=== PATIENT | female | born 1960 | race Caucasian/White ===

== ENCOUNTER 2020-10-19 22:06 | Inpatient (IN) | payer MEDICAID, SELFPAY ==
[~2020-10-19] VITALS: Ht 162.6 cm; Wt 66.7 kg
[2020-10-19 22:09] VITALS: BP 111/77
--- NOTE | 2020-10-19 22:09 | NUR ---
PT ALEXANDRU ALS. TAKEN TO BED 9
--- NOTE | 2020-10-19 22:39 | NUR ---
EMT at bedside for EKG
--- NOTE | 2020-10-19 22:40 | NUR ---
PATIENT BIBA FROM HOME FOR SOB X 10 DAYS. PER PATOENT HAS BEEN FEELING "SICK WITH COUGH FOR 19 DAYS." PATIENT STATES TESTED POSITIVE FOR COVID X 10 DAYS AGO. PATIENT PRESENTS WITH LABORED BREATHING, PATIENT CURRENTLY ON NON-REBREATHER @ 15L/MIN AND O2SAT @ 96%. PER EMS PATIENT WAS AT 75% PN RA. MEDHX: LUBNAIES CELINA
--- NOTE | 2020-10-19 22:41 | NUR ---
Dr. Aguila examining patient.
[2020-10-19 22:52] LABS: BASOPHILS # (AUTO) 0.1 K/uL (0.00-0.22); BASOPHILS % (AUTO) 1.1 % (0.0-2.0); EOSINOPHILS # (AUTO) 0.3 K/uL (0-0.4); EOSINOPHILS % (AUTO) 2.1 % (0.0-4.0); HEMATOCRIT 38.8 % (36-48); HEMOGLOBIN 13.5 g/dL (12.0-16.0); LYMPHOCYTES # (AUTO) 1.3 K/uL (2.5-16.5); LYMPHOCYTES % (AUTO) 10.4 % (20.5-51.1); MEAN CORPUSCULAR HEMOGLOBIN 31 pg (27-31); MEAN CORPUSCULAR HGB CONC 35 g/dL (33-37); MEAN CORPUSCULAR VOLUME 89.3 fL (80-94); MONOCYTES # (AUTO) 0.2 K/uL (0.8-1.0); MONOCYTES % (AUTO) 1.7 % (1.7-9.3); NEUTROPHILS # (AUTO) 10.2 K/uL (1.8-7.7); NEUTROPHILS % (AUTO) 84.7 % (42.2-75.2); PLATELET COUNT (AUTO) 355 K/uL (140-450); RED BLOOD CELL COUNT(AUTO) 4.34 MIL/uL (4.20-5.40); RED CELL DISTRIBUTION WIDTH 13.8 % (11.6-13.7); WHITE BLOOD COUNT (AUTO) 12.1 K/uL (4.8-10.8)
[2020-10-19 22:55] LABS: APPEARANCE,URINE CLEAR (CLEAR); BILIRUBIN,URINE NEGATIVE (NEGATIVE); BLOOD, URINE NEGATIVE (NEGATIVE); COLOR,URINE YELLOW (YELLOW); LEUKOCYTE ESTERASE ,URINE NEGATIVE (NEGATIVE); NITRITE, URINE NEGATIVE (NEGATIVE); UGLUCOSE NEGATIVE (NEGATIVE)
--- NOTE | 2020-10-19 22:55 | NUR ---
RT AT BEDSIDE. ABG COLLECTED.
--- NOTE | 2020-10-19 23:02 | NUR ---
XRAY AT BEDSIDE.
--- NOTE | 2020-10-19 23:03 | NUR ---
Ed rice in [facility] - 10/19/20 at 2303 by FRANCISCO X-Ray at bedside.
[2020-10-19 23:14] LABS: PROTHROMBIN TIME 11.6 secs (10.8-13.4)
[2020-10-19 23:18] LABS: ALBUMIN 2.2 g/dL (3.4-5.0); ANION GAP 11.2 (8-16); CARBON DIOXIDE 28.1 mmol/L (21-32); CREATININE 0.7 mg/dL (0.6-1.3); LACTATE DEHYDROGENASE 965 U/L (81-234); POTASSIUM 3.3 mmol/L (3.5-5.1); TOTAL BILIRUBIN 1.4 mg/dL (0.0-1.0)
[2020-10-19 23:25] LABS: D-DIMER > 5000 ng/ml (0-400)
[2020-10-19 23:30] LABS: FIBRINOGEN 496 mg/dL (200-400)
[2020-10-19] MEDS ORDERED: AZITHROMYCIN 500 MG in DEXTROSE 5% 250 ML IV ONE (23:30)
[2020-10-19] MEDS ORDERED: cefTRIAXone 1,000 MG VIAL ONE (23:30)
[2020-10-19] MEDS ORDERED: DEXAMETHASONE 10 MG/ML VIAL IVP ONE (23:30)
[2020-10-19] MEDS ORDERED: AZITHROMYCIN 500 MG INJ VIAL IV ONE (23:31)
--- NOTE | 2020-10-19 23:31 | NUR ---
BERTHA Carmichael at bedside for medical evaluation.
[2020-10-19] MEDS ORDERED: ACETAMIN/CODEINE 120/12MG-5ML 5 ML UDC PO ONE (23:35)
--- NOTE | 2020-10-19 23:52 | NUR ---
RT AT BEDSIDE.
--- NOTE | 2020-10-20 | NUR ---
PLACED PT ON HFNC @30LPM AND 100% FIO2, PT IS TOLERATING WELL, SATURATION AT 96%. WILL CONTINUE TO MONITOR
--- NOTE | 2020-10-20 02:55 | NUR ---
Patient will be admitted to care of . Admited to TELE. Will go to room 112A. Belongings list completed. Report to DECLAN VALLES.
--- NOTE | 2020-10-20 03:40 | NUR ---
PATIENT WAS TRANSFERRED TO ROOM 112A VIA GURNEY. PT IS AAOX4 TOGOLESE SPEAKING ONLY ABLE TO MAKE NEEDS KNOWN. RESPIRATIONS ARE EQUAL AND UNLABORED ON 30L VIA HFNC SAT WELL 95%. PT ON BEDREST D/T INCREASED SOB WITH ACTIVITY. PATIENT IS CONTINENT USES BED COOK. SKIN IS INTACT. IV ON RW 20G SL. PT RAPID COVID -. PER PT SHE TESTED POSITIVE LAST SUNDAY AND HAS THEN HAD INCREASED SOB REASON SHE CAME TO HOSPITAL. MRSA SWAB OBTAINED AND SENT TO LAB. PT DENIES ANY PMH. NKA. ON DROPLET ISOLATION. POC DISCUSSED WITH PT. PT VERBALIZED UNDERSTANDING. ORIENTED PT TO ROOM, STAFF, AND CALL LIGHT. ALL SAFETY MEASURES ARE IN PLACE. WILL CONTINUE TO MONITOR.
[2020-10-20 04:00] VITALS: BP 141/68
--- NOTE | 2020-10-20 04:00 | NUR ---
ASSISTED PATIENT WITH BEDPAN. PT TOLERATED WELL. ALL NEEDS MET. CALL LIGHT IS WITHIN REACH.
[2020-10-20] MEDS ORDERED: MORPHINE SULFATE 2 MG/ML SYR IVP PRN ×2 (04:15→07:05)
[2020-10-20] MEDS: NACL 0.9% 1,000 ML IV SCH (04:50)
--- NOTE | 2020-10-20 06:00 | NUR ---
ROUNDS MADE. PT IS SLEEPING COMFORTABLY IN BED WITH EYES CLOSED. CHEST RISE AND FALL NOTED. CALL LIGHT IS WITHIN REACH.
[2020-10-20] MEDS ORDERED: DOCUSATE SODIUM 100 MG GELCAP PO PRN (07:05)
[2020-10-20] MEDS ORDERED: ALBUTEROL HFA MDI 90 MCG/ACTUATION 8 GM INH PRN (07:05)
[2020-10-20] MEDS ORDERED: HYDROcodone/APAP 5/325 MG 1 TAB TAB PO PRN (07:05)
[2020-10-20] MEDS ORDERED: LORazepam 2 MG/ML VIAL IM/IVP PRN (07:05)
[2020-10-20] MEDS ORDERED: ONDANSETRON 4 MG/2 ML VIAL IVP PRN (07:05)
[2020-10-20] MEDS ORDERED: ZOLPIDEM 5 MG TAB PO PRN (07:05)
[2020-10-20] MEDS ORDERED: ACETAMINOPHEN 325 MG TAB PO PRN (07:05)
--- NOTE | 2020-10-20 07:20 | NUR ---
GAVE BEDSIDE REPORT TO DAY RN. PT ENDORSED IN STABLE CONDITION.
[2020-10-20 07:26] LABS: BASOPHILS % (AUTO) 0.2 % (0.0-2.0); EOSINOPHILS % (AUTO) 0.1 % (0.0-4.0); HEMATOCRIT 39.5 % (36-48); HEMOGLOBIN 13.4 g/dL (12.0-16.0); LYMPHOCYTES # (AUTO) 0.6 K/uL (2.5-16.5); MEAN CORPUSCULAR HEMOGLOBIN 31 pg (27-31); MEAN CORPUSCULAR HGB CONC 34 g/dL (33-37); MEAN CORPUSCULAR VOLUME 91.1 fL (80-94); MONOCYTES # (AUTO) 0.2 K/uL (0.8-1.0); MONOCYTES % (AUTO) 1.9 % (1.7-9.3); NEUTROPHILS # (AUTO) 11.1 K/uL (1.8-7.7); NEUTROPHILS % (AUTO) 92.8 % (42.2-75.2); PLATELET COUNT (AUTO) 325 K/uL (140-450); RED BLOOD CELL COUNT(AUTO) 4.34 MIL/uL (4.20-5.40); RED CELL DISTRIBUTION WIDTH 14.2 % (11.6-13.7)
[2020-10-20 08:00] VITALS: BP 101/61
[2020-10-20 08:10] LABS: PROTHROMBIN TIME 11.7 secs (10.8-13.4)
[2020-10-20 08:32] LABS: CHOL/HDL RATIO 8.2 (1-4.5); FREE T4 (FREE THYROXINE) 1.28 ng/dL (0.76-1.46); MAGNESIUM 3.2 mg/dL (1.8-2.4); PHOSPHORUS 3.5 mg/dL (2.5-4.9); THYROID STIMULATING HORMONE 0.7 uIU/mL (0.34-3.74)
[2020-10-20 08:46] LABS: ALBUMIN 2.1 g/dL (3.4-5.0); CREATININE 0.7 mg/dL (0.6-1.3)
--- NOTE | 2020-10-20 09:19 | NUR ---
PATIENT HAS BEEN SCREENED AND CATEGORIZED MODERATE NUTRITION RISK. PATIENT WILL BE SEEN WITHIN 3-5 DAYS OF ADMISSION. 10/22/20 10/24/[address]
[2020-10-20] MEDS: ENOXAPARIN 40 MG/0.4 ML SYR SUBQ SCH (09:56)
[2020-10-20] MEDS: VITAMIN D 400 IU TAB PO SCH (09:56)
[2020-10-20] MEDS: ZINC SULF 220 MG CAP PO SCH ×2 (09:57→21:00)
[2020-10-20] MEDS: ASCORBIC ACID 500 MG TAB PO SCH (09:57)
[2020-10-20] MEDS: AZITHROMYCIN 250 MG TAB PO SCH (09:59)
--- NOTE | 2020-10-20 10:39 | NUR ---
SOCIAL WORK NOTE: SW WAS UNABLE TO MEET PATIENT AT BEDSIDE. SW CONTACTED PHONE NUMBER ON FACE SHEET AND LEFT VM. SW CONTACTED RN BUT NO ADDITIONAL CONTACTS WERE AVAILABLE. SW WILL FOLLOW UP TO COMPLETE ASSESSMENT. Addendum: 10/26/20 at 1148 by Herman Menendez SS SOCIAL WORK NOTE: Patient's Orientation Unable To Assess Information Provided By CHELSY TYSON - DAUGHTER Comments SW WAS UNABLE TO MEET PATIENT AT BEDSIDE. SW COMPLETED ASSESSMENT WITH PATIENT'S DAUGHTER. Clinical Applications Manager, Realtionship and Phone Number CHELSY TYSON DAUGHTER [phone] [facility] [place] Power of Bundle Tier No Does Patient Have a POLST No Identifying Problems No Social Work Triggers Is A Social Work Consult Needed No Mandate Report Filed No Explanation Of Identifying Problems PATIENT IS A 60-YEAR-OLD FEMALE ADMITETD FOR BILATERAL PNEUMONIA AND COVID. PATIENT HAS NO REPORTED PMHX. PATIENT'S DAUGHTER REPORTED THAT NO HX OF SUBSTANCE ABUSE OR MENTAL HEALTH. Admitted From Home Pre-Admission Level Of Functioning Status Independent/Ambulatory Prior Resources/Services Used In Last 12 Months No Prior Resources Used Prior DME No Prior DME Used Dialysis Comments N/A Living Situation Lives With Family House Patient Had Caregiver No Home Support No Caregiver Issues Financial Issues No Known Financial Issue Referral To The Financial Counselor Needed No Factors/Needs No D/C Needs Identified Pt/Rep Participated In Discharge Plan Yes Patient/Family Agress With Discharge Plan Yes Discharge Plan Comments TENTATIVE DISCHARGE PLAN IS FOR PATIENT TO RETURN HOME. DC Plan Status Initiated
[2020-10-20 12:00] VITALS: BP 103/64
--- NOTE | 2020-10-20 15:30 | NUR ---
DC PLANNIN YRS OLD FEMALE PATIENT WAS ADMITTED FROM HOME WITH A DX OF BILATERAL PNEUMONIA COVID POSITIVE. PT WAS TESTED POSITIVE COVID 5 DAYS AGO. RAPID COVID TEST IS NEGATIVE, PCR IS PENDING. ON HIGH FLOW 30L/NC SATING 93%. STARTED COVID TREATMENT, ROCEPHIN AND AZITHROMYCIN IV ABX. CONSULTED WITH PULMO AND ID. DC PLAN TO TO GO HOME AFTER WEAN OFF O2. CM TO FOLLOW Addendum: 10/25/20 at 1511 by Trish Romo RN DC PLANNING: PT IS ON HIGH FLOW 30L/NC SATING 93% , CONTINUE COVID PROTOCOL. ID AND PULMO FOLLOWING DC PLAN TO WEAN OF O2. CM TO FOLLOW Addendum: 10/29/20 at 1439 by Trish Romo RN DC PLANNING: PT IS STILL ON 15L OXIMIZER SATING 93% FIO2 70% . ID AND PULMO FOLLOWING. CM TO FOLLOW Addendum: 11/05/20 at 1543 by Trish Romo RN DC PLANNING: PT IS ON O2 2L/NC SATING 95% DC PLAN TO WEAN O2 TO RA AND DC HOME WHEN STABLE CM TO FOLLOW Addendum: 11/08/20 at 1053 by Ivanna Katz CM DC DIRECTOR OF RETENTION: FOLLOWED UP WITH [facility] THIS MORNING. AT THIS TIME THEY ARE ONLY ACCEPTING HOME 02 FOR [facility] PATIENTS. Addendum: 11/08/20 at 1212 by Trish Romo RN DC PLANNING: PT IS ON 1.5L/NC SATING 93% ,UNABLE TO GET [facility] PAY FOR HOME O2. DC PLAN TO WEAN OF O2. CM TO FOLLOW Addendum: 11/11/20 at 1424 by Trish Romo RN DC PLANNING: RECEIVED A CALL FROM [employer] RESP CARE SPOKE WITH TISHA CRUZ PT IS QUALIFIED FOR HOME O2 WILL DELIVER WITH IN 3-4 HRS. NOTIFIED HALIMA VALLES AND CLAUDY CHARGE NURSE. CM TO FOLLOW
[2020-10-20 16:00] VITALS: BP 123/94
[2020-10-20 20:00] VITALS: BP 113/71
--- NOTE | 2020-10-20 20:12 | NUR ---
RECEIVED REPORT FROM BHAVESH RN, PT A&O X4, VERBAL, NEEDS MOD. ASSIST FOR FALL RISK, ON COVID ISOLATION, HI FLOW @30L, WITH SOB, NO DISTRESS, CARE ASSUMED.
[2020-10-21] VITALS: BP 149/81
[2020-10-21] MEDS: NACL 0.9% 1,000 ML IV SCH (00:05)
--- NOTE | 2020-10-21 02:29 | NUR ---
PT SEEN AND ASSESSED. PT ON HFNC 30L AND 100% FiO2 WITH SPO2 91%. PT IN NO RESPIRATORY DISTRESS AT THIS TIME. WILL CONTINUE TO MONITOR PT.
[2020-10-21 04:00] VITALS: BP 125/73
--- NOTE | 2020-10-21 07:24 | NUR ---
GAVE REPORT TO TOYA/HAI
[2020-10-21 09:20] LABS: BASOPHILS # (AUTO) 0.1 K/uL (0.00-0.22); BASOPHILS % (AUTO) 0.7 % (0.0-2.0); HEMOGLOBIN 12.4 g/dL (12.0-16.0); LYMPHOCYTES # (AUTO) 1.1 K/uL (2.5-16.5); LYMPHOCYTES % (AUTO) 7.1 % (20.5-51.1); MEAN CORPUSCULAR HEMOGLOBIN 31 pg (27-31); MEAN CORPUSCULAR HGB CONC 33 g/dL (33-37); MEAN CORPUSCULAR VOLUME 92.3 fL (80-94); MONOCYTES # (AUTO) 0.3 K/uL (0.8-1.0); MONOCYTES % (AUTO) 1.9 % (1.7-9.3); NEUTROPHILS # (AUTO) 13.6 K/uL (1.8-7.7); NEUTROPHILS % (AUTO) 90.3 % (42.2-75.2); PLATELET COUNT (AUTO) 325 K/uL (140-450); RED BLOOD CELL COUNT(AUTO) 4.01 MIL/uL (4.20-5.40); WHITE BLOOD COUNT (AUTO) 15.1 K/uL (4.8-10.8)
[2020-10-21 09:45] VITALS: BP 113/65
[2020-10-21 10:21] LABS: ANION GAP 11.8 (8-16); CREATININE 0.6 mg/dL (0.6-1.3); MAGNESIUM 2.7 mg/dL (1.8-2.4); PHOSPHORUS 2.7 mg/dL (2.5-4.9); POTASSIUM 3.8 mmol/L (3.5-5.1); TOTAL BILIRUBIN 0.4 mg/dL (0.0-1.0)
[2020-10-21] MEDS: ASCORBIC ACID 500 MG TAB PO SCH (10:29)
[2020-10-21] MEDS: AZITHROMYCIN 250 MG TAB PO SCH (10:30)
[2020-10-21] MEDS: ENOXAPARIN 40 MG/0.4 ML SYR SUBQ SCH (10:39)
[2020-10-21] MEDS: ZINC SULF 220 MG CAP PO SCH ×2 (10:41→21:29)
[2020-10-21] MEDS: VITAMIN D 400 IU TAB PO SCH (10:43)
[2020-10-21 12:00] VITALS: BP 115/70
[2020-10-21 16:00] VITALS: BP 116/60
--- NOTE | 2020-10-21 18:35 | NUR ---
Patient alert, oriented and able to verbalize needs. Patient currently on high flow at 40L/0% Fi02 tolerating procedure. Changed to non rebreather at 15 L and patient was able to tolerate and stats stayed at 93 %. Encouraged to prone, cough and deep breath. Safety co measures in place and has no further needs.
[2020-10-21 20:00] VITALS: BP 100/53
--- NOTE | 2020-10-21 22:21 | NUR ---
Patient received in stable condition A&Ox4 showing 0 s/s of distress at this time. Patient is able to make all needs known, currently the patient is on 15L via a NRB and O2 level is stating at 92 and is tolerating well. Patient is being monitored for Covid r/t s/s. Patient is currently awaiting to speak to MD regarding education and obtain signed consent for convalescent palasma. Will continue to monitor and will follow up with plasma infusion.
[2020-10-22] VITALS: BP 149/65
--- NOTE | 2020-10-22 02:24 | NUR ---
LATE ENTRY: COVID + RESULT RECEIVED. HARD COPY REQUESTED AND SENT TO INFECTION CONTROL.
[2020-10-22] MEDS: NACL 0.9% 1,000 ML IV SCH ×2 (02:33→16:55)
[2020-10-22 04:00] VITALS: BP 136/79
[2020-10-22 06:42] LABS: BASOPHILS # (AUTO) 0.1 K/uL (0.00-0.22); BASOPHILS % (AUTO) 0.5 % (0.0-2.0); EOSINOPHILS % (AUTO) 0.2 % (0.0-4.0); HEMATOCRIT 37.1 % (36-48); HEMOGLOBIN 12.5 g/dL (12.0-16.0); LYMPHOCYTES # (AUTO) 1.1 K/uL (2.5-16.5); LYMPHOCYTES % (AUTO) 10.2 % (20.5-51.1); MEAN CORPUSCULAR HEMOGLOBIN 31 pg (27-31); MEAN CORPUSCULAR HGB CONC 34 g/dL (33-37); MEAN CORPUSCULAR VOLUME 91.6 fL (80-94); MONOCYTES # (AUTO) 0.2 K/uL (0.8-1.0); MONOCYTES % (AUTO) 1.4 % (1.7-9.3); NEUTROPHILS # (AUTO) 9.8 K/uL (1.8-7.7); NEUTROPHILS % (AUTO) 87.7 % (42.2-75.2); PLATELET COUNT (AUTO) 328 K/uL (140-450); RED BLOOD CELL COUNT(AUTO) 4.05 MIL/uL (4.20-5.40); RED CELL DISTRIBUTION WIDTH 14.2 % (11.6-13.7); WHITE BLOOD COUNT (AUTO) 11.2 K/uL (4.8-10.8)
--- NOTE | 2020-10-22 06:57 | NUR ---
Continuity of care is endorsed to AM shift RN. Patient is stable with 0 s/s of distress noted at this time on 15L NRB and stating at 93. All needs have been met.
[2020-10-22 07:57] LABS: ANION GAP 13.3 (8-16); CARBON DIOXIDE 26.4 mmol/L (21-32); CREATININE 0.6 mg/dL (0.6-1.3); POTASSIUM 4.7 mmol/L (3.5-5.1)
[2020-10-22 08:50] VITALS: BP 161/72
--- NOTE | 2020-10-22 08:55 | NUR ---
Patient awake and alert. Breathing rapidly on non rebreather. Changed patient to High flow as was not tolerating. Patient febrile and has malaise. Given Acetaminophen 650 Mg and observing patient. Called Vicente and requested for Physician to to explain and sign consent for Plasma Administration and Physician to sign it during rounds.
[2020-10-22] MEDS: ZINC SULF 220 MG CAP PO SCH ×2 (10:07→21:13)
[2020-10-22] MEDS: VITAMIN D 400 IU TAB PO SCH (10:08)
[2020-10-22] MEDS: ASCORBIC ACID 500 MG TAB PO SCH (10:08)
[2020-10-22] MEDS: ENOXAPARIN 40 MG/0.4 ML SYR SUBQ SCH (10:09)
[2020-10-22] MEDS: AZITHROMYCIN 250 MG TAB PO SCH (10:10)
[2020-10-22 12:00] VITALS: BP 120/73
[2020-10-22 16:50] VITALS: BP 127/74
--- NOTE | 2020-10-22 19:15 | NUR ---
RECEIVED REPORT FROM DAY SHIFT NURSE. PT IN BED RESTING, AOX4, BEDREST, ABLE TO MAKE NEEDS KNOWN. PT ON HIFLOW 40LPM FIO2 100%. PT NOT IN DISTRESS. CURRENT O2 SAT 99%. ABDOMEN IS SOFT AND NON-TENDER, ACTIVE BOWEL SOUNDS NOTED. SKIN IS WARM, DRY, AND INTACT. PT WITH IV ACCESS ON LEFT HAND G20 PATENT AND INTACT, IVF INFUSING WELL. PT DENIES ANY PAIN OR DISCOMFORT. NO REQUESTS MADE. SAFETY MEASURES IN PLACE. CALL LIGHT WITHIN REACH. WILL CONTINUE TO MONITOR.
[2020-10-22 20:00] VITALS: BP 126/68
--- NOTE | 2020-10-22 21:13 | NUR ---
VS STABLE. SCHEDULED MEDS GIVEN. HI FLOW IN PLACE. PT NOT IN DISTRESS. BLANKET PROVIDED NEEDED. PT KEPT COMFORTABLE. CALL LIGHT WITHIN REACH. WILL CONTINUE TO MONITOR.
--- NOTE | 2020-10-22 21:45 | NUR ---
CONVALESCENT PLASMA TRANSFUSION STARTED. VS STABLE. 2 NURSE VERIFICATION DONE PRIOR. WILL CONTINUE TO MONITOR.
--- NOTE | 2020-10-22 23:05 | NUR ---
CONVALESCENT PLASMA TRANSFUSION DONE. NO REACTIONS NOTED. VS STABLE. PT DENIES ANY PAIN OR DISCOMFORT. NO S/SX OF DISTRESS NOTED. WILL CONTINUE TO MONITOR.
[2020-10-23] VITALS: BP 155/55
--- NOTE | 2020-10-23 00:24 | NUR ---
VS STABLE. PT IN BED RESTING WITH HOB ELEVATED. HIFLOW IN PLACE. PT NOT IN DISTRESS. DENIES ANY PAIN OR DISCOMFORT. NO REQUESTS MADE. CALL LIGHT WITHIN REACH. WILL CONTINUE TO MONITOR.
--- NOTE | 2020-10-23 02:18 | NUR ---
PT ASLEEP. HI FLOW IN PLACE. VISIBLE CHEST RISE AND FALL NOTED. NO S/SX OF DISTRESS NOTED. PT KEPT COMFORTABLE. CALL LIGHT WITHIN REACH. WILL CONTINUE TO MONITOR.
[2020-10-23 04:00] VITALS: BP 146/65
--- NOTE | 2020-10-23 04:18 | NUR ---
VS STABLE. PT RESTING IN BED. O2 IN PLACE. PT DENIES ANY SHORTNESS OF BREATH. PT KEPT COMFORTABLE. NO REQUESTS MADE. WILL CONTINUE TO MONITOR.
--- NOTE | 2020-10-23 07:41 | NUR ---
ENDORSED TO AM SHIFT NURSE FOR CONTINUITY OF CARE
--- NOTE | 2020-10-23 07:50 | NUR ---
RECEIVED REPORT FROM STICK FEEDER NURSE. PT AOX4, BEDREST, ABLE TO MAKE NEEDS KNOWN. PT ON HIFLOW 40 LPM FIO2 100% CURRENT O2 SAT 99%. SKIN IS WARM, DRY, AND INTACT. PT WITH IV ACCESS ON LEFT HAND G20 PATENT AND INTACT, IVF INFUSING WELL. PT DENIES ANY PAIN OR DISCOMFORT. NO REQUESTS MADE. SAFETY MEASURES IN PLACE. CALL LIGHT WITHIN REACH. WILL CONTINUE TO MONITOR.
[2020-10-23 08:00] VITALS: BP 121/79
[2020-10-23 08:30] LABS: BASOPHILS % (AUTO) 0.3 % (0.0-2.0); EOSINOPHILS # (AUTO) 0.1 K/uL (0-0.4); EOSINOPHILS % (AUTO) 0.4 % (0.0-4.0); HEMATOCRIT 35.6 % (36-48); HEMOGLOBIN 12.1 g/dL (12.0-16.0); LYMPHOCYTES # (AUTO) 1.5 K/uL (2.5-16.5); LYMPHOCYTES % (AUTO) 11.9 % (20.5-51.1); MEAN CORPUSCULAR HEMOGLOBIN 31 pg (27-31); MEAN CORPUSCULAR HGB CONC 34 g/dL (33-37); MEAN CORPUSCULAR VOLUME 91.3 fL (80-94); MONOCYTES # (AUTO) 0.3 K/uL (0.8-1.0); MONOCYTES % (AUTO) 2.3 % (1.7-9.3); NEUTROPHILS # (AUTO) 10.5 K/uL (1.8-7.7); NEUTROPHILS % (AUTO) 85.1 % (42.2-75.2); PLATELET COUNT (AUTO) 319 K/uL (140-450); WHITE BLOOD COUNT (AUTO) 12.3 K/uL (4.8-10.8)
[2020-10-23 09:23] LABS: ANION GAP 14.6 (8-16); CARBON DIOXIDE 24.5 mmol/L (21-32); CREATININE 0.6 mg/dL (0.6-1.3); POTASSIUM 4.1 mmol/L (3.5-5.1)
--- NOTE | 2020-10-23 10:15 | NUR ---
RT TITRATED FIO2 DOWN TO 30 L. PT IS STABLE. NO DISTRESS NOTED. WILL CONTINUE TO MONITOR.
[2020-10-23] MEDS: AZITHROMYCIN 250 MG TAB PO SCH (10:16)
[2020-10-23] MEDS: VITAMIN D 400 IU TAB PO SCH (10:16)
[2020-10-23] MEDS: ZINC SULF 220 MG CAP PO SCH ×2 (10:16→21:28)
[2020-10-23] MEDS: ASCORBIC ACID 500 MG TAB PO SCH (10:17)
[2020-10-23] MEDS: ENOXAPARIN 40 MG/0.4 ML SYR SUBQ SCH (10:17)
--- NOTE | 2020-10-23 10:19 | NUR ---
(10/23/20) RD INITIAL ASSESSMENT COMPLETED PLEASE REFER TO NUTRITION ASSESSMENT UNDER CARE ACTIVITY FOR ESTIMATED NUTRITIONAL NEEDS. RD RECOMMENDATIONS: 1. CONTINUE CARDIAC DIET 2. CONTINUE HEALTH SHAKE 1 CARTON WITH MEALS TID 3. RD WILL F/U 3-5 DAYS; MODERATE RISK BLANCA ALVES MS, RDN
--- NOTE | 2020-10-23 10:20 | NUR ---
ALL SCHEDULED MEDS GIVEN. PT IS STABLE. NO DISTRESS NOTED. WILL CONTINUE TO MONITOR.
[2020-10-23] MEDS: NACL 0.9% 1,000 ML IV SCH (11:27)
[2020-10-23 12:00] VITALS: BP 119/65
--- NOTE | 2020-10-23 12:30 | NUR ---
CHECKED ON PATIENT. NO SIGNS OF ACUTE DISTRESS NOTED. WILL CONTINUE TO MONITOR.
--- NOTE | 2020-10-23 14:15 | NUR ---
CHECKED ON PATIENT. NO SIGNS OF ACUTE DISTRESS NOTED. WILL CONTINUE TO MONITOR.
[2020-10-23 16:00] VITALS: BP 109/54
--- NOTE | 2020-10-23 16:30 | NUR ---
CHECKED ON PATIENT. NO SIGNS OF ACUTE DISTRESS NOTED. WILL CONTINUE TO MONITOR.
--- NOTE | 2020-10-23 19:30 | NUR ---
ENDORSED TO CENTER AISLE CASHIER NURSE FOR CONTINUITY OF CARE. PT IS STABLE.
[2020-10-23 20:00] VITALS: BP 107/74
[2020-10-24] VITALS: BP 119/77
[2020-10-24 04:00] VITALS: BP 135/75
[2020-10-24] MEDS: NACL 0.9% 1,000 ML IV SCH (06:32)
[2020-10-24 08:00] VITALS: BP 136/82
[2020-10-24] MEDS: ZINC SULF 220 MG CAP PO SCH ×2 (09:23→22:08)
[2020-10-24] MEDS: AZITHROMYCIN 250 MG TAB PO SCH (09:24)
[2020-10-24] MEDS: VITAMIN D 400 IU TAB PO SCH (09:24)
[2020-10-24] MEDS: ENOXAPARIN 40 MG/0.4 ML SYR SUBQ SCH (09:26)
[2020-10-24] MEDS: ASCORBIC ACID 500 MG TAB PO SCH (09:27)
[2020-10-24 09:38] LABS: BASOPHILS # (AUTO) 0.1 K/uL (0.00-0.22); BASOPHILS % (AUTO) 0.5 % (0.0-2.0); EOSINOPHILS % (AUTO) 0.1 % (0.0-4.0); HEMATOCRIT 38.2 % (36-48); HEMOGLOBIN 12.9 g/dL (12.0-16.0); LYMPHOCYTES # (AUTO) 1.2 K/uL (2.5-16.5); LYMPHOCYTES % (AUTO) 9.5 % (20.5-51.1); MEAN CORPUSCULAR HEMOGLOBIN 31 pg (27-31); MEAN CORPUSCULAR HGB CONC 34 g/dL (33-37); MEAN CORPUSCULAR VOLUME 92.7 fL (80-94); MONOCYTES # (AUTO) 0.4 K/uL (0.8-1.0); MONOCYTES % (AUTO) 3.2 % (1.7-9.3); NEUTROPHILS # (AUTO) 10.9 K/uL (1.8-7.7); NEUTROPHILS % (AUTO) 86.7 % (42.2-75.2); PLATELET COUNT (AUTO) 332 K/uL (140-450); RED BLOOD CELL COUNT(AUTO) 4.12 MIL/uL (4.20-5.40); RED CELL DISTRIBUTION WIDTH 14.3 % (11.6-13.7); WHITE BLOOD COUNT (AUTO) 12.6 K/uL (4.8-10.8)
[2020-10-24 09:56] LABS: ANION GAP 14.9 (8-16); CARBON DIOXIDE 24.7 mmol/L (21-32); CREATININE 0.6 mg/dL (0.6-1.3); POTASSIUM 4.6 mmol/L (3.5-5.1)
--- NOTE | 2020-10-24 10:00 | NUR ---
Patient AOx4, on high flow Sat. 99%, Patient denies any pain/chest pain. plans of care discussed with her. Patient pee and had BM in bed. Discussed with patient about it. Patient denies any incontinent issues, but stated that she is too weak to get up. Encourages patient call for help with bedpan or other things. Did jeffrey care and chalk in the morning. It was saturated with urine. will continue to monitor patient.
[2020-10-24 12:00] VITALS: BP 102/57
[2020-10-24 16:00] VITALS: BP 111/68
--- NOTE | 2020-10-24 19:28 | NUR ---
Endorsed patient care to lease analyst RN
[2020-10-24 20:00] VITALS: BP 110/52
--- NOTE | 2020-10-24 20:03 | NUR ---
Assumed care. A/O x 4. In no acute distress. Remains on O2 2 liters via nasal cannula. Will be receiving convalescent plasma. Will follow up with the blood bank. The son Virgilio has been given an update. Bed is in a loww position. Call light within reach. Addendum: 10/24/20 at 2008 by Agency 04 HAI RN Wrong patient
--- NOTE | 2020-10-24 20:09 | NUR ---
Assumed care. A/O x 4. In no acute distress. Remains on 30 liters Fio2 100% via High flow nasal cannula. Tolerating well. She is incontinent B/B. Receiving NS at 50 ml/hr. Call light within reach. Bed in a low position. Will continue to monitor.
[2020-10-25] VITALS: BP 110/61
[2020-10-25 04:00] VITALS: BP 120/74
[2020-10-25] MEDS: NACL 0.9% 1,000 ML IV SCH (04:38)
[2020-10-25 06:55] LABS: BASOPHILS # (AUTO) 0.1 K/uL (0.00-0.22); BASOPHILS % (AUTO) 0.3 % (0.0-2.0); EOSINOPHILS # (AUTO) 0.1 K/uL (0-0.4); EOSINOPHILS % (AUTO) 0.4 % (0.0-4.0); HEMATOCRIT 39.2 % (36-48); HEMOGLOBIN 13.3 g/dL (12.0-16.0); LYMPHOCYTES # (AUTO) 1.5 K/uL (2.5-16.5); LYMPHOCYTES % (AUTO) 9.9 % (20.5-51.1); MEAN CORPUSCULAR HEMOGLOBIN 31 pg (27-31); MEAN CORPUSCULAR HGB CONC 34 g/dL (33-37); MEAN CORPUSCULAR VOLUME 91.3 fL (80-94); MONOCYTES # (AUTO) 0.8 K/uL (0.8-1.0); MONOCYTES % (AUTO) 5.3 % (1.7-9.3); NEUTROPHILS # (AUTO) 12.6 K/uL (1.8-7.7); NEUTROPHILS % (AUTO) 84.1 % (42.2-75.2); PLATELET COUNT (AUTO) 362 K/uL (140-450); RED BLOOD CELL COUNT(AUTO) 4.29 MIL/uL (4.20-5.40); RED CELL DISTRIBUTION WIDTH 14.1 % (11.6-13.7); WHITE BLOOD COUNT (AUTO) 14.9 K/uL (4.8-10.8)
--- NOTE | 2020-10-25 07:10 | NUR ---
REC'D REPORT FROM APPLICATION SYSTEMS ADMINISTRATOR NURSE ,PT STABLE. ON 30L HIGH FLOW, A/O X4, MOHAWK SPEAKING, L.HAND 20G INFUSING NS 50ML/HR
[2020-10-25 07:25] LABS: ANION GAP 13.1 (8-16); CARBON DIOXIDE 27.4 mmol/L (21-32); CREATININE 0.6 mg/dL (0.6-1.3); POTASSIUM 5.5 mmol/L (3.5-5.1)
[2020-10-25 08:00] VITALS: BP 90/63
[2020-10-25] MEDS: ENOXAPARIN 40 MG/0.4 ML SYR SUBQ SCH (09:08)
[2020-10-25] MEDS: ZINC SULF 220 MG CAP PO SCH ×2 (09:10→21:00)
[2020-10-25] MEDS: VITAMIN D 400 IU TAB PO SCH (09:10)
[2020-10-25] MEDS: ASCORBIC ACID 500 MG TAB PO SCH (09:10)
--- NOTE | 2020-10-25 09:20 | NUR ---
ADMINISTERED MEDICATIONS PER MD ORDER, PT TOLERATED PROCEDURE WELL.
[2020-10-25 12:00] VITALS: BP 129/79
--- NOTE | 2020-10-25 15:30 | NUR ---
PT STABLE, RESTING IN BED
[2020-10-25 16:00] VITALS: BP 107/72
--- NOTE | 2020-10-25 17:22 | NUR ---
PT STABLE RESTING IN BED, NO SIGN OF DISTRESS
--- NOTE | 2020-10-25 19:48 | NUR ---
ENDORSED TO SOFTBALL CORE MOLDER NURSE FOR CONTINUITY OF CARE, PT STABLE, RESTING IN BED,
[2020-10-25 20:00] VITALS: BP 97/56
[2020-10-26] VITALS: BP 121/72
[2020-10-26 04:00] VITALS: BP 105/69
[2020-10-26] MEDS: NACL 0.9% 1,000 ML IV SCH (04:07)
--- NOTE | 2020-10-26 07:25 | NUR ---
RECEIVED PT FROM MARKING MACHINE OPERATOR REGISTRY NURSE, PT IS AWAKE NAD SEATED ON THE BED WITH SAFETY PRECAUTION IN PLACE, IV LINE NOTED ON THE LEFT HAND G. 20 WITH IVF INFUSING NS AT 60ML/HR, INTACT, PT IS ON HIGH FLOW OF O2 AT 30L, AOX4, KHMER SPEAKING AND NO SIGN OF DISTRESS NOTED. WILL CONTINUE TO MONITOR PT.
[2020-10-26 07:44] LABS: BASOPHILS % (AUTO) 0.3 % (0.0-2.0); EOSINOPHILS # (AUTO) 0.1 K/uL (0-0.4); EOSINOPHILS % (AUTO) 0.5 % (0.0-4.0); HEMATOCRIT 38.9 % (36-48); LYMPHOCYTES # (AUTO) 1.7 K/uL (2.5-16.5); LYMPHOCYTES % (AUTO) 13.1 % (20.5-51.1); MEAN CORPUSCULAR HEMOGLOBIN 31 pg (27-31); MEAN CORPUSCULAR HGB CONC 34 g/dL (33-37); MEAN CORPUSCULAR VOLUME 91.6 fL (80-94); MONOCYTES # (AUTO) 0.9 K/uL (0.8-1.0); MONOCYTES % (AUTO) 6.5 % (1.7-9.3); NEUTROPHILS # (AUTO) 10.4 K/uL (1.8-7.7); NEUTROPHILS % (AUTO) 79.6 % (42.2-75.2); PLATELET COUNT (AUTO) 372 K/uL (140-450); RED BLOOD CELL COUNT(AUTO) 4.24 MIL/uL (4.20-5.40); RED CELL DISTRIBUTION WIDTH 14.5 % (11.6-13.7); WHITE BLOOD COUNT (AUTO) 13.1 K/uL (4.8-10.8)
[2020-10-26 07:58] LABS: ANION GAP 10.9 (8-16); CARBON DIOXIDE 29.3 mmol/L (21-32); CREATININE 0.6 mg/dL (0.6-1.3); POTASSIUM 5.2 mmol/L (3.5-5.1)
[2020-10-26 08:00] VITALS: BP 118/72
[2020-10-26] MEDS ORDERED: remdesivir CLINICAL MONITORING 1 EA MISC MC PRN (08:50)
[2020-10-26] MEDS: COMMUNICATION ORDER MC SCH (09:00)
[2020-10-26] MEDS: ZINC SULF 220 MG CAP PO SCH ×2 (09:15→23:29)
[2020-10-26] MEDS: ENOXAPARIN 40 MG/0.4 ML SYR SUBQ SCH (09:15)
[2020-10-26] MEDS: ASCORBIC ACID 500 MG TAB PO SCH (09:16)
[2020-10-26] MEDS: VITAMIN D 400 IU TAB PO SCH (09:17)
--- NOTE | 2020-10-26 09:17 | NUR ---
PT WAS GIVEN THE SCHEDULED AM MEDICATIONS, TOLERATED, PARAMETER CHECKED AND PT SATURATING NOW AT 92%, ON HIGH FLOW AT 30L. WILL CONTINUE TO MONITOR PT.
--- NOTE | 2020-10-26 11:57 | NUR ---
PT WAS GIVEN REMDESIVIR IVPB NOW, NO SIGN OF DISTRESS NOTED AND WILL MONITOR PT.
[2020-10-26 12:00] VITALS: BP 105/65
[2020-10-26] MEDS ORDERED: REMDESIVIR (EUA) 200 MG in NACL 0.9% 100 ML IV SCH (12:00)
[2020-10-26 16:00] VITALS: BP 111/68
--- NOTE | 2020-10-26 19:30 | NUR ---
ENDORSED PT TO BENCH PRECISION ASSEMBLER NURSE, REGISTRY FOR CONTINUITY OF CARE
[2020-10-26 20:00] VITALS: BP 124/75
[2020-10-27] VITALS: BP 110/66
[2020-10-27] MEDS: NACL 0.9% 1,000 ML IV SCH ×2 (01:26→16:30)
[2020-10-27 06:51] VITALS: BP 119/70
[2020-10-27 07:09] LABS: ALBUMIN 2.4 g/dL (3.4-5.0); ANION GAP 8.5 (8-16); BILIRUBIN,DIRECT 0.2 mg/dL (0.0-0.3); CARBON DIOXIDE 29.8 mmol/L (21-32); CREATININE 0.5 mg/dL (0.6-1.3); POTASSIUM 5.3 mmol/L (3.5-5.1); TOTAL BILIRUBIN 0.6 mg/dL (0.0-1.0)
--- NOTE | 2020-10-27 07:25 | NUR ---
RECEIVED PT FROM STRIPPER PRINTED CIRCUIT BOARDS REGISTRY NURSE, PT IS AWAKE AND LYING ON THE BED WITH SAFETY PRECAUTION IN PLACE, IV LINE NOTED ON THE LEFT HAND G. 20 WITH IVF INFUSING NS AT 60ML/HR, INTACT, PT IS ON HUMIDIFIED NC AT 15L O2, AOX4, MALAY SPEAKING AND NO SIGN OF DISTRESS NOTED. WILL CONTINUE TO MONITOR PT.
[2020-10-27 08:00] VITALS: BP 108/72
[2020-10-27] MEDS: ENOXAPARIN 40 MG/0.4 ML SYR SUBQ SCH (08:50)
[2020-10-27] MEDS: ZINC SULF 220 MG CAP PO SCH ×2 (08:58→20:29)
--- NOTE | 2020-10-27 08:58 | NUR ---
PT WAS GIVEN THE SCHEDULED AM MEDICATIONS, PARAMETERS CHECKED, PT IS SATURATING AT 91% ON 15L O2 VIA HUMIDIFIED NASAL CANNULA, AND WILL CONTINUE TO MONITOR PT.
[2020-10-27] MEDS: ASCORBIC ACID 500 MG TAB PO SCH (08:59)
[2020-10-27] MEDS: VITAMIN D 400 IU TAB PO SCH (08:59)
[2020-10-27] MEDS: COMMUNICATION ORDER MC SCH (09:00)
[2020-10-27] MEDS: REMDESIVIR (EUA) 100 MG in NACL 0.9% 100 ML IV SCH (11:42)
--- NOTE | 2020-10-27 11:42 | NUR ---
PT WAS GIVEN THE SCHEDULED MEDICATION VIA IVPB, TOLERATED AND WILL CONTINUE TO MONITOR PT.
[2020-10-27 12:00] VITALS: BP 149/94
--- NOTE | 2020-10-27 14:00 | NUR ---
PT IS WATCHING TYV, SATURATING AT 92% NOW, NO SIGN OF DISTRESS NOTED.
[2020-10-27 16:00] VITALS: BP 100/69
--- NOTE | 2020-10-27 16:40 | NUR ---
PT IS RESTING, SATURATING AT 94%, NO SIGN OF DISTRESS NOTED.
--- NOTE | 2020-10-27 19:24 | NUR ---
ENDORSED PT TO CORPORATE DRIVER NURSE FOR CONTINUITY OF CARE.
[2020-10-28 07:21] LABS: BASOPHILS # (AUTO) 0.1 K/uL (0.00-0.22); BASOPHILS % (AUTO) 0.6 % (0.0-2.0); EOSINOPHILS % (AUTO) 0.1 % (0.0-4.0); HEMATOCRIT 38.5 % (36-48); HEMOGLOBIN 12.8 g/dL (12.0-16.0); LYMPHOCYTES # (AUTO) 1.9 K/uL (2.5-16.5); LYMPHOCYTES % (AUTO) 13.2 % (20.5-51.1); MEAN CORPUSCULAR HEMOGLOBIN 31 pg (27-31); MEAN CORPUSCULAR HGB CONC 33 g/dL (33-37); MEAN CORPUSCULAR VOLUME 92.3 fL (80-94); MONOCYTES # (AUTO) 0.8 K/uL (0.8-1.0); MONOCYTES % (AUTO) 5.4 % (1.7-9.3); NEUTROPHILS # (AUTO) 11.7 K/uL (1.8-7.7); NEUTROPHILS % (AUTO) 80.7 % (42.2-75.2); PLATELET COUNT (AUTO) 361 K/uL (140-450); RED BLOOD CELL COUNT(AUTO) 4.17 MIL/uL (4.20-5.40); RED CELL DISTRIBUTION WIDTH 14.6 % (11.6-13.7); WHITE BLOOD COUNT (AUTO) 14.5 K/uL (4.8-10.8)
--- NOTE | 2020-10-28 07:33 | NUR ---
RECEIVED ENDORSEMENT FROM WASHERY BOSS, AWAKE, ALERT, ORIENTEDX4, WITH O2 WITH HUMIDIFIER AT 15L/MIN VIA NC, NOT IN DISTRESS NOTED.WITH ONGOING IV FLUID WITH 0.9%NS AT 60ML/HOUR INFUSING AT RT HAND G20 IV CANNULA NOTED. SAFETY MEASURES IN PLACE AND CONTINUE MONITOR
[2020-10-28 07:54] LABS: ALBUMIN 2.3 g/dL (3.4-5.0); ANION GAP 9.8 (8-16); CARBON DIOXIDE 30.1 mmol/L (21-32); CREATININE 0.5 mg/dL (0.6-1.3); POTASSIUM 3.9 mmol/L (3.5-5.1); TOTAL BILIRUBIN 0.5 mg/dL (0.0-1.0)
[2020-10-28 08:00] VITALS: BP 119/65
[2020-10-28] MEDS: ZINC SULF 220 MG CAP PO SCH ×2 (08:40→20:31)
[2020-10-28] MEDS: ASCORBIC ACID 500 MG TAB PO SCH (08:40)
[2020-10-28] MEDS: ENOXAPARIN 40 MG/0.4 ML SYR SUBQ SCH (08:41)
[2020-10-28] MEDS: VITAMIN D 400 IU TAB PO SCH (08:41)
[2020-10-28] MEDS: COMMUNICATION ORDER MC SCH (08:43)
--- NOTE | 2020-10-28 08:53 | NUR ---
FULLY AWAKE AND ALERT, DUE MEDICATION GIVEN
--- NOTE | 2020-10-28 10:14 | NUR ---
RT CONTACTED IF PATIENT CAN SHIFT TO OXYMIZER, APPARENTLY ON NASAL CANNULA AT 15L/MIN
[2020-10-28] MEDS: REMDESIVIR (EUA) 100 MG in NACL 0.9% 100 ML IV SCH (11:43)
[2020-10-28] MEDS: NACL 0.9% 1,000 ML IV SCH (11:44)
[2020-10-28 12:00] VITALS: BP 100/61
--- NOTE | 2020-10-28 12:15 | NUR ---
DUE REMDESEVIR IV GIVEN, NOT IN DISTRESS NOTED
--- NOTE | 2020-10-28 13:15 | NUR ---
HAVING HER LUNCH , NOT IN DISTRESS NOTED
--- NOTE | 2020-10-28 15:57 | NUR ---
STILL ON OXYMIZER AT 15L/MIN, [id number]-53% AND NOT IN DISTRESS NOTED,
--- NOTE | 2020-10-28 15:58 | NUR ---
10/28/20 RD FOLLOW UP COMPLETED PLEASE REFER TO NUTRITION ASSESSMENT UNDER CARE ACTIVITY FOR ESTIMATED NUTRITIONAL NEEDS. 1. CONTINUE CARDIAC DIET 2. CONTINUE HEALTH SHAKE 1 CARTON ONCE WITH ENSURE BID 3. ENCOURAGE PO INTAKE ABOVE 75% 4. RD WILL F/U 3-5 DAYS; MODERATE RISK ANATOLY DIALLO, RD
[2020-10-28 16:00] VITALS: BP 105/57
--- NOTE | 2020-10-28 18:08 | NUR ---
DINNER SERVED, ABLE TO FEED HERSELF, NOT IN DISTRESS NOTED, STILL ON OXYMIZER AT 15L/MIN, F8SPZ-21%
--- NOTE | 2020-10-28 19:00 | NUR ---
PATIENT RECEIVED IN BED, AWAKE, ALERT, ORIENTEDX4, WITH O2 WITH HUMIDIFIER AT 15L/MIN VIA NC, NO DISTRESS NOTED. IV FLUID WITH 0.9%NS AT 60ML/HOUR INFUSING AT RT HAND G20 IV INTACT. FALL AND SAFETY PRECAUTIONS IN PLACE AND CONTINUE TO MONITOR. PATIENT COVID POSITIVE. SKIN INTACT. DISCUSSED WITH PATIENT MEDICAL MANAGEMENT. MEDICATION ACTIONS, PURPOSE AND SIDE EFFECT. BILATERAL PNEUMONIA NOTED. POSITIVE COVID NOTED. RESPIRATIONS EVEN AND NONLABORED. NO ACUTE DISTRESS NOTED. ONGOING CARE CONTINUED.
--- NOTE | 2020-10-28 19:30 | NUR ---
ENDORSED TO ELEVATOR STARTER IN STABLE CONDITION FOR CONTINUITY OF CARE
[2020-10-28 20:00] VITALS: BP 102/62
[2020-10-29] VITALS: BP 102/60
--- NOTE | 2020-10-29 | NUR ---
PATIENT SLEEPING DURING ROUNDING, EASILY AROUSED. RESPIRATIONS EVEN FEW EPISODES OF LABORED RESPIRATIONS. BILATERAL PNEUMONIA NOTED. 15L O2 VIA OXYMIZER. SATURATIONS 95%. 15L OXYMIZER CONTINUED. NO ADVERSE EFFECTS RELATED TO MEDICATION. NO ACUTE DISTRESS NOTED. RN CONTINUING WITH PLAN OF CARE.
[2020-10-29 04:00] VITALS: BP 104/64
--- NOTE | 2020-10-29 05:21 | NUR ---
Patient sleeping during rounding. No complaint offered. Fall and safety precautions maintained. No acute distress noted.
[2020-10-29 06:33] LABS: BASOPHILS % (AUTO) 0.2 % (0.0-2.0); EOSINOPHILS % (AUTO) 0.3 % (0.0-4.0); HEMATOCRIT 40.2 % (36-48); HEMOGLOBIN 13.4 g/dL (12.0-16.0); LYMPHOCYTES # (AUTO) 2.5 K/uL (2.5-16.5); LYMPHOCYTES % (AUTO) 14.6 % (20.5-51.1); MEAN CORPUSCULAR HEMOGLOBIN 31 pg (27-31); MEAN CORPUSCULAR HGB CONC 33 g/dL (33-37); MEAN CORPUSCULAR VOLUME 92.2 fL (80-94); MONOCYTES # (AUTO) 0.9 K/uL (0.8-1.0); MONOCYTES % (AUTO) 5.3 % (1.7-9.3); NEUTROPHILS # (AUTO) 13.8 K/uL (1.8-7.7); NEUTROPHILS % (AUTO) 79.6 % (42.2-75.2); PLATELET COUNT (AUTO) 398 K/uL (140-450); RED BLOOD CELL COUNT(AUTO) 4.36 MIL/uL (4.20-5.40); RED CELL DISTRIBUTION WIDTH 14.4 % (11.6-13.7); WHITE BLOOD COUNT (AUTO) 17.3 K/uL (4.8-10.8)
--- NOTE | 2020-10-29 07:30 | NUR ---
Received report from pm nurse Taylor. Pt resting in bed, c/o O2 being too high. Currently has oxymizer with O2 @ 15Lpm, SaO2 97%. O2 titrated down to 12L/juan f via oxymizer, SaO2 maintained @ 95%. No c/o shortness of breath, respirations even & nonlabored. Left hand IV 20G intact & asymptomatic.
[2020-10-29 07:41] LABS: ALBUMIN 2.4 g/dL (3.4-5.0); ANION GAP 8.8 (8-16); CARBON DIOXIDE 29.1 mmol/L (21-32); CREATININE 0.6 mg/dL (0.6-1.3); POTASSIUM 3.9 mmol/L (3.5-5.1); TOTAL BILIRUBIN 0.5 mg/dL (0.0-1.0)
[2020-10-29 08:00] VITALS: BP 102/58
[2020-10-29] MEDS: NACL 0.9% 1,000 ML IV SCH (08:40)
[2020-10-29] MEDS: COMMUNICATION ORDER MC SCH (09:00)
[2020-10-29] MEDS: ASCORBIC ACID 500 MG TAB PO SCH (09:16)
[2020-10-29] MEDS: VITAMIN D 400 IU TAB PO SCH (09:16)
[2020-10-29] MEDS: ZINC SULF 220 MG CAP PO SCH ×2 (09:17→21:00)
[2020-10-29] MEDS: LEVOFLOXACIN 750 MG/D5W PREMIX 150 ML IV SCH (09:19)
[2020-10-29] MEDS: ENOXAPARIN 40 MG/0.4 ML SYR SUBQ SCH (09:20)
[2020-10-29 11:40] LABS: APPEARANCE,URINE CLEAR (CLEAR); BILIRUBIN,URINE NEGATIVE (NEGATIVE); BLOOD, URINE NEGATIVE (NEGATIVE); COLOR,URINE YELLOW (YELLOW); LEUKOCYTE ESTERASE ,URINE NEGATIVE (NEGATIVE); NITRITE, URINE NEGATIVE (NEGATIVE); UGLUCOSE NEGATIVE (NEGATIVE)
[2020-10-29 12:00] VITALS: BP 102/58
[2020-10-29] MEDS: REMDESIVIR (EUA) 100 MG in NACL 0.9% 100 ML IV SCH (12:40)
[2020-10-29 16:00] VITALS: BP 103/76
--- NOTE | 2020-10-29 19:06 | NUR ---
PATIENT ENDORSED TO SOCIAL SERVICES DIRECTOR FROM AM RN. PATIENT RECEIVED IN BED, AWAKE, ALERT, ORIENTEDX4, WITH O2 WITH HUMIDIFIER AT 15L/MIN VIA NC, NO DISTRESS NOTED. IV FLUID WITH 0.9%NS AT 60ML/HOUR INFUSING AT RT HAND G20 IV INTACT. FALL AND SAFETY PRECAUTIONS IN PLACE AND CONTINUE TO MONITOR. PATIENT COVID POSITIVE. SKIN INTACT. DISCUSSED WITH PATIENT MEDICAL MANAGEMENT. MEDICATION ACTIONS, PURPOSE AND SIDE EFFECT. BILATERAL PNEUMONIA NOTED. POSITIVE COVID NOTED. RESPIRATIONS EVEN AND NONLABORED. NO ACUTE DISTRESS NOTED. ONGOING CARE CONTINUED.
[2020-10-29 20:00] VITALS: BP 106/68
[2020-10-30] VITALS: BP 102/58
[2020-10-30 04:00] VITALS: BP 104/68
[2020-10-30] MEDS: NACL 0.9% 1,000 ML IV SCH (04:15)
[2020-10-30 06:55] LABS: BASOPHILS % (AUTO) 0.2 % (0.0-2.0); EOSINOPHILS % (AUTO) 0.1 % (0.0-4.0); HEMATOCRIT 39.3 % (36-48); HEMOGLOBIN 13.4 g/dL (12.0-16.0); LYMPHOCYTES # (AUTO) 1.9 K/uL (2.5-16.5); MEAN CORPUSCULAR HEMOGLOBIN 31 pg (27-31); MEAN CORPUSCULAR HGB CONC 34 g/dL (33-37); MEAN CORPUSCULAR VOLUME 92.2 fL (80-94); MONOCYTES # (AUTO) 0.7 K/uL (0.8-1.0); MONOCYTES % (AUTO) 4.3 % (1.7-9.3); NEUTROPHILS # (AUTO) 13.2 K/uL (1.8-7.7); NEUTROPHILS % (AUTO) 83.4 % (42.2-75.2); PLATELET COUNT (AUTO) 366 K/uL (140-450); RED BLOOD CELL COUNT(AUTO) 4.27 MIL/uL (4.20-5.40); RED CELL DISTRIBUTION WIDTH 14.3 % (11.6-13.7); WHITE BLOOD COUNT (AUTO) 15.8 K/uL (4.8-10.8)
[2020-10-30 07:10] LABS: ALBUMIN 2.4 g/dL (3.4-5.0); ANION GAP 6.6 (8-16); BILIRUBIN,DIRECT 0.2 mg/dL (0.0-0.3); CREATININE 0.6 mg/dL (0.6-1.3); POTASSIUM 4.6 mmol/L (3.5-5.1); TOTAL BILIRUBIN 0.5 mg/dL (0.0-1.0)
[2020-10-30 08:00] VITALS: BP 113/74
[2020-10-30] MEDS: COMMUNICATION ORDER MC SCH (09:00)
[2020-10-30] MEDS: LEVOFLOXACIN 750 MG/D5W PREMIX 150 ML IV SCH (09:23)
[2020-10-30] MEDS: VITAMIN D 400 IU TAB PO SCH (09:24)
[2020-10-30] MEDS: ZINC SULF 220 MG CAP PO SCH ×2 (09:24→21:16)
[2020-10-30] MEDS: ENOXAPARIN 40 MG/0.4 ML SYR SUBQ SCH (09:25)
[2020-10-30] MEDS: ASCORBIC ACID 500 MG TAB PO SCH (09:25)
--- NOTE | 2020-10-30 09:26 | NUR ---
SCHEDULED MEDICATIONS DUE GIVEN. WILL CONTINUE TO MONITOR.
[2020-10-30 12:00] VITALS: BP 105/70
[2020-10-30] MEDS: REMDESIVIR (EUA) 100 MG in NACL 0.9% 100 ML IV SCH (12:08)
--- NOTE | 2020-10-30 12:08 | NUR ---
SCHEDULED MEDICATIONS DUE GIVEN. WILL CONTINUE TO MONITOR.
--- NOTE | 2020-10-30 15:00 | NUR ---
PATIENT SITTING DOWN AT BEDSIDE CHAIR. CONDITION UNCHANGED. WILL CONTINUE TO MONITOR.
[2020-10-30 16:00] VITALS: BP 110/78
--- NOTE | 2020-10-30 16:25 | NUR ---
AWAKE AND ALERT VERBALLY RESPONSIVE GOOD CHEST RISE AND AERATION THROUGHOUT BILATERAL LUNG GUTIERREZ AIRWAY PATENT SATURATION 96% ON SUPPLEMENTAL OXYGEN AT 8 LPM VIA OXYMIZER TITRATED FIO2 TO 6 LPM
--- NOTE | 2020-10-30 19:35 | NUR ---
GAVE REPORT TO ORGAN TUNER ELECTRONIC NURSE FOR CONTINUITY OF CARE. PATIENT IN STABLE CONDITION.
[2020-10-30 20:00] VITALS: BP 106/69
--- NOTE | 2020-10-30 20:00 | NUR ---
Assumed care. A/O x 4. Turns self in b ed. Incontinent B/B. On IV fluids. Bed in low position. Call light within reach. On Oxymizer for O2 provision. Tolerating well. Will continue to monitor.
[2020-10-31] VITALS: BP 131/72
--- NOTE | 2020-10-31 | NUR ---
Sleeping presently. In no acute distress. Will continue to roeund on , and monitor as well.
[2020-10-31 04:00] VITALS: BP 131/70
--- NOTE | 2020-10-31 04:05 | NUR ---
Remains sleeping calmly. Easy to arouse. IV fluids replenished. Tolerating well. In no acute distress.
[2020-10-31] MEDS: NACL 0.9% 1,000 ML IV SCH ×2 (04:43→20:28)
[2020-10-31 07:55] LABS: BASOPHILS % (AUTO) 0.3 % (0.0-2.0); EOSINOPHILS % (AUTO) 0.1 % (0.0-4.0); HEMATOCRIT 40.1 % (36-48); HEMOGLOBIN 13.4 g/dL (12.0-16.0); LYMPHOCYTES # (AUTO) 1.9 K/uL (2.5-16.5); LYMPHOCYTES % (AUTO) 12.1 % (20.5-51.1); MEAN CORPUSCULAR HEMOGLOBIN 31 pg (27-31); MEAN CORPUSCULAR HGB CONC 33 g/dL (33-37); MEAN CORPUSCULAR VOLUME 92.1 fL (80-94); MONOCYTES # (AUTO) 0.7 K/uL (0.8-1.0); MONOCYTES % (AUTO) 4.4 % (1.7-9.3); NEUTROPHILS # (AUTO) 13.4 K/uL (1.8-7.7); NEUTROPHILS % (AUTO) 83.1 % (42.2-75.2); PLATELET COUNT (AUTO) 362 K/uL (140-450); RED BLOOD CELL COUNT(AUTO) 4.35 MIL/uL (4.20-5.40); RED CELL DISTRIBUTION WIDTH 14.4 % (11.6-13.7); WHITE BLOOD COUNT (AUTO) 16.1 K/uL (4.8-10.8)
[2020-10-31 08:00] VITALS: BP 114/57
--- NOTE | 2020-10-31 08:19 | NUR ---
Assumed patient care. Patient AOx4, denies any cough, SOB or pain. patient is on 5L oxymizer sat 90%. plans of care discussed with patient. Encourages patient to call for assistance. call light within reach, bed in low position. Will continue to monitor patient.
[2020-10-31 08:44] LABS: ALBUMIN 2.5 g/dL (3.4-5.0); ANION GAP 8.7 (8-16); BILIRUBIN,DIRECT 0.2 mg/dL (0.0-0.3); CARBON DIOXIDE 30.7 mmol/L (21-32); CREATININE 0.6 mg/dL (0.6-1.3); POTASSIUM 5.4 mmol/L (3.5-5.1); TOTAL BILIRUBIN 0.5 mg/dL (0.0-1.0)
--- NOTE | 2020-10-31 09:05 | NUR ---
Patient's potassium 5.4, texted Dr. Sykes at 0905.
[2020-10-31] MEDS: LEVOFLOXACIN 750 MG/D5W PREMIX 150 ML IV SCH (09:49)
[2020-10-31] MEDS: VITAMIN D 400 IU TAB PO SCH (09:49)
[2020-10-31] MEDS: ZINC SULF 220 MG CAP PO SCH ×2 (09:50→20:28)
[2020-10-31] MEDS: ENOXAPARIN 40 MG/0.4 ML SYR SUBQ SCH (09:51)
[2020-10-31] MEDS: COMMUNICATION ORDER MC SCH (09:52)
[2020-10-31] MEDS: ASCORBIC ACID 500 MG TAB PO SCH (09:56)
--- NOTE | 2020-10-31 11:41 | NUR ---
Dr. Sykes is not director of vocational guidance, called Dr. Elam at 1130 regarding potassium 5.4. she ordered 10mg Kokalma once and repeat BMP at 1600. order placed.
[2020-10-31] MEDS ORDERED: SODIUM ZIRCONIUM CYCLOSILICATE 10 GM POWD.PACK PO SCH (12:00)
--- NOTE | 2020-10-31 12:07 | NUR ---
10mg of Lokelma given, will continue monitor lab. Patient is up on the chair, encourages patient to use incentive spirometer. call light within reach, table in front of patient. Will continue patient care.
[2020-10-31 14:04] VITALS: BP 102/59
[2020-10-31 16:00] VITALS: BP 108/73
[2020-10-31 16:30] LABS: ANION GAP 8.4 (8-16); CREATININE 0.5 mg/dL (0.6-1.3); POTASSIUM 4.4 mmol/L (3.5-5.1)
--- NOTE | 2020-10-31 19:27 | NUR ---
Endorsed patient care to maintenance technician 2nd shift RN. Patient resting comfortably, no s/s of distress.
--- NOTE | 2020-10-31 19:55 | NUR ---
Assumed care. A/O x 4. Denies pain at this time. Incontinent B/B. About to be changed. In no acute distress. On IV fliuds at 50 ml/hr. On Oxymizer 8 liters . Tolerating well. Will continue to monitor.
[2020-10-31 20:00] VITALS: BP 113/66
[2020-11-01] VITALS: BP 97/39
--- NOTE | 2020-11-01 | NUR ---
Sleeping calmly. In no acute distress. Will continue to monitor.
[2020-11-01 04:00] VITALS: BP_SYST 113; BP_SYST 90; BP_DIAS 51; BP_DIAS 69
--- NOTE | 2020-11-01 04:00 | NUR ---
Remains sleeping calmly. In no acute distress. Will continue to monitor.
--- NOTE | 2020-11-01 06:00 | NUR ---
Awake at this time. Had a good night's sleep. In no acute distress. Will endorse to AM RN
[2020-11-01 06:30] LABS: BASOPHILS % (AUTO) 0.2 % (0.0-2.0); HEMATOCRIT 40.3 % (36-48); HEMOGLOBIN 13.6 g/dL (12.0-16.0); LYMPHOCYTES # (AUTO) 2.3 K/uL (2.5-16.5); LYMPHOCYTES % (AUTO) 12.5 % (20.5-51.1); MEAN CORPUSCULAR HEMOGLOBIN 31 pg (27-31); MEAN CORPUSCULAR HGB CONC 34 g/dL (33-37); MEAN CORPUSCULAR VOLUME 92.2 fL (80-94); MONOCYTES # (AUTO) 0.7 K/uL (0.8-1.0); NEUTROPHILS # (AUTO) 15.5 K/uL (1.8-7.7); NEUTROPHILS % (AUTO) 83.3 % (42.2-75.2); PLATELET COUNT (AUTO) 384 K/uL (140-450); RED BLOOD CELL COUNT(AUTO) 4.37 MIL/uL (4.20-5.40); RED CELL DISTRIBUTION WIDTH 14.6 % (11.6-13.7); WHITE BLOOD COUNT (AUTO) 18.6 K/uL (4.8-10.8)
--- NOTE | 2020-11-01 07:10 | NUR ---
RECEIVED REPORT FROM NIGHT NURSE FOR CONTINUITY OF CARE. PT IS STABLE, PT ASLEEP. PT HS LH 20G INFUSING NS AT 50ML/H., SKIN INTACT. SAFETY MEASURES IN PLACE, WILL CONTINUE TO MONITOR.
[2020-11-01 07:22] LABS: MAGNESIUM 2.2 mg/dL (1.8-2.4); PHOSPHORUS 3.7 mg/dL (2.5-4.9)
[2020-11-01 08:00] VITALS: BP 101/77
[2020-11-01] MEDS: ENOXAPARIN 40 MG/0.4 ML SYR SUBQ SCH (08:33)
[2020-11-01] MEDS: ZINC SULF 220 MG CAP PO SCH ×2 (08:34→21:07)
[2020-11-01] MEDS: VITAMIN D 400 IU TAB PO SCH (08:34)
[2020-11-01] MEDS: LEVOFLOXACIN 750 MG/D5W PREMIX 150 ML IV SCH (08:35)
[2020-11-01] MEDS: ASCORBIC ACID 500 MG TAB PO SCH (08:35)
[2020-11-01 08:36] LABS: ANION GAP 6.2 (8-16); CREATININE 0.5 mg/dL (0.6-1.3); POTASSIUM 5.2 mmol/L (3.5-5.1)
--- NOTE | 2020-11-01 08:42 | NUR ---
ADMINISTERED SCHEDULED MEDICATION, MEDICATION EDUCATION PROVIDED. PT TOLERATED WELL. PT IS STABLE, WILL CONTINUE TO MONITOR.
--- NOTE | 2020-11-01 11:46 | NUR ---
NOTIFIED DR AVILEZ OF ABNORMAL LABS
[2020-11-01 12:00] VITALS: BP 111/61
[2020-11-01] MEDS ORDERED: SODIUM ZIRCONIUM CYCLOSILICATE 10 GM POWD.PACK PO ONE (12:40)
[2020-11-01] MEDS ORDERED: SODIUM ZIRCONIUM CYCLOSILICATE 10 GM POWD.PACK ONE (13:44)
--- NOTE | 2020-11-01 14:03 | NUR ---
ADMINISTERED SCHEDULED MEDICATION, INCONTINENT CARE PROVIDED. PT TOLERATED WELL. PT IS STABLE, WILL CONTINUE TO MONITOR
--- NOTE | 2020-11-01 14:06 | NUR ---
UPDATED PT'S DAUGHTER ON PT STATUS AND PLAN OF CARE
[2020-11-01 16:00] VITALS: BP 108/63
[2020-11-01] MEDS: NACL 0.9% 1,000 ML IV SCH (17:45)
--- NOTE | 2020-11-01 17:51 | NUR ---
ADMINISTERED SCHEDULED FLUIDS, PT TOLERATED WELL. PROVIDED INCONTINENT CARE TO PT. PT IS STABLE, WILL CONTINUE TO MONITOR.
--- NOTE | 2020-11-01 19:20 | NUR ---
ENDORSE PT TO NIGHT NURSE FOR CONTINUITY OF CARE.
--- NOTE | 2020-11-01 19:20 | NUR ---
RECEIVED PATIENT FROM AM SHIFT NURSE FOR CONTINUITY OF CARE. AAOX4. RESPIRATIONS EVEN, UNLABORED. CONTINUES ON O2 5L VIA OXIMIZER, O2SAT 98%. SKIN WARM, DRY. IV SITE NOTED TO LEFT HAND 20G PATENT/INTACT, INFUSING FLUIDS WELL. ABDOMEN SOFT, NONTENDER, NONDISTENDED. BOWEL SOUNDS ACTIVE X4 QUADRANTS. PATIENT IS CONTINENT OF B/B. PLAN OF CARE DISCUSSED. ISOLATION PRECAUTIONS OBSERVED. SAFETY PRECAUTIONS IN PLACE. CALL LIGHT WITHIN REACH.
[2020-11-01 20:00] VITALS: BP 112/55
--- NOTE | 2020-11-01 20:30 | NUR ---
PATIENT ACCIDENTLY PULLED OUT IV. NEW IV SITE STARTED ON LEFT FOREARM 22G. NO DISCOMFORT NOTED FROM PATIENT.
--- NOTE | 2020-11-01 21:30 | NUR ---
DUE MEDS GIVEN. PATIENT IS EXTREMELY CONFUSED. BSWR IN PLACE. NO INJURY TO PATIENT. WILL CONTINUE TO REORIENT NEEDED. FREQUENT ROUNDS MADE BY ALL STAFF. Addendum: 11/02/20 at 0058 by Kelsy Bravo RN AMEND: WRONG PATIENT
--- NOTE | 2020-11-01 21:35 | NUR ---
PATIENT TALKING ON PHONE WITH FAMILY. DUE MEDS GIVEN. NO S/S ACUTE DISTRESS. CALL LIGHT WITHIN REACH. ISOLATION PRECAUTIONS OBSERVED.
--- NOTE | 2020-11-01 23:00 | NUR ---
PATIENT IS RESTING COMFORTABLY IN BED. NO S/S ACUTE DISTRESS. CALL LIGHT WITHIN REACH. ISOLATION PRECAUTIONS OBSERVED.
[2020-11-02] VITALS: BP 107/54
--- NOTE | 2020-11-02 01:05 | NUR ---
MADE ROUNDS. PATIENT IS ASLEEP. NO S/S ACUTE DISTRESS. CALL LIGHT WITHIN REACH. ISOLATION PRECAUTIONS OBSERVED. SAFETY PRECAUTIONS IN PLACE.
--- NOTE | 2020-11-02 03:15 | NUR ---
PATIENT IS ASLEEP. NO S/S ACUTE DISTRESS. CALL LIGHT WITHIN REACH. ISOLATION PRECAUTIONS OBSERVED. SAFETY PRECAUTIONS IN PLACE.
[2020-11-02 04:00] VITALS: BP 103/58
--- NOTE | 2020-11-02 05:43 | NUR ---
PATIENT IS ASLEEP. NO S/S ACUTE DISTRESS. CALL LIGHT WITHIN REACH. ISOLATION PRECAUTIONS OBSERVED. SAFETY PRECAUTIONS IN PLACE.
[2020-11-02 06:53] LABS: BASOPHILS % (AUTO) 0.1 % (0.0-2.0); EOSINOPHILS % (AUTO) 0.1 % (0.0-4.0); HEMATOCRIT 36.1 % (36-48); HEMOGLOBIN 12.1 g/dL (12.0-16.0); LYMPHOCYTES # (AUTO) 2.5 K/uL (2.5-16.5); LYMPHOCYTES % (AUTO) 13.7 % (20.5-51.1); MEAN CORPUSCULAR HEMOGLOBIN 31 pg (27-31); MEAN CORPUSCULAR HGB CONC 33 g/dL (33-37); MEAN CORPUSCULAR VOLUME 91.3 fL (80-94); MONOCYTES # (AUTO) 1.2 K/uL (0.8-1.0); MONOCYTES % (AUTO) 6.8 % (1.7-9.3); NEUTROPHILS # (AUTO) 14.5 K/uL (1.8-7.7); NEUTROPHILS % (AUTO) 79.3 % (42.2-75.2); PLATELET COUNT (AUTO) 338 K/uL (140-450); RED BLOOD CELL COUNT(AUTO) 3.95 MIL/uL (4.20-5.40); RED CELL DISTRIBUTION WIDTH 14.5 % (11.6-13.7); WHITE BLOOD COUNT (AUTO) 18.3 K/uL (4.8-10.8)
[2020-11-02 06:59] LABS: ANION GAP 8.2 (8-16); CARBON DIOXIDE 31.5 mmol/L (21-32); CREATININE 0.6 mg/dL (0.6-1.3); POTASSIUM 4.7 mmol/L (3.5-5.1)
--- NOTE | 2020-11-02 07:20 | NUR ---
REC'D REPORT FROM FIXED CAPITAL CLERK NURSE, PT STABLE, ON 5L OXIMIZER, DENIES PAIN AT THIS TIME, LUNGS CLEAR, IS AT BEDSIDE, CALL LIGHT WITHIN REACH. PT STABLE
--- NOTE | 2020-11-02 07:30 | NUR ---
ENDORSED PATIENT TO AM SHIFT NURSE FOR CONTINUITY OF CARE.
[2020-11-02 07:32] LABS: MAGNESIUM 2.1 mg/dL (1.8-2.4); PHOSPHORUS 3.6 mg/dL (2.5-4.9)
[2020-11-02 08:00] VITALS: BP 95/47
[2020-11-02] MEDS: LEVOFLOXACIN 750 MG/D5W PREMIX 150 ML IV SCH (08:44)
[2020-11-02] MEDS: VITAMIN D 400 IU TAB PO SCH (08:44)
[2020-11-02] MEDS: ASCORBIC ACID 500 MG TAB PO SCH (08:45)
[2020-11-02] MEDS: ZINC SULF 220 MG CAP PO SCH ×2 (08:45→20:48)
[2020-11-02] MEDS: ENOXAPARIN 40 MG/0.4 ML SYR SUBQ SCH (08:46)
--- NOTE | 2020-11-02 09:26 | NUR ---
ADMINISTERED MEDS PER MD ORDER, PT TOLERATED PROCEDURE WELL, CALL LIGHT WITHIN REACH, STABLE, NO SIGN OF DISTRESS, 5L OXIMIZER
[2020-11-02 12:00] VITALS: BP 122/68
[2020-11-02] MEDS: NACL 0.9% 1,000 ML IV SCH (12:15)
--- NOTE | 2020-11-02 13:02 | NUR ---
SATURATION 96% ON SUPPLEMENTAL OXYGEN AT 6 LPM VOA OXYMIZER TITRATED FIO2 TO 4 LPM PRIVATE EQUITY ASSOCIATE TO MONITOR AND TITRATE TOLERATED YADIRA//RN NOTFIED
--- NOTE | 2020-11-02 13:50 | NUR ---
PT STABLE ON PHONE WITH FAMILY, NO SIGN OF DISTRESS
--- NOTE | 2020-11-02 15:15 | NUR ---
NUTRITION AND HYDRATION HANDOUT (IN [place]) PROVIDED TO PT FROM GAGE MAKER.
--- NOTE | 2020-11-02 15:34 | NUR ---
11/02/20 RD FOLLOW UP COMPLETED PLEASE REFER TO NUTRITION ASSESSMENT UNDER CARE ACTIVITY FOR ESTIMATED NUTRITIONAL NEEDS. 1. CONTINUE CARDIAC DIET WITH ENSURE BID 2. RD PROVIDED NUTRITION EDUCATION FOR COVID-19 3. ENCOURAGE PO INTAKE ABOVE 75% 4. RD WILL F/U 3-5 DAYS; MODERATE RISK ANATOLY DIALLO, RD
[2020-11-02 16:00] VITALS: BP 102/68
--- NOTE | 2020-11-02 18:16 | NUR ---
PT RESTING, WATCHING TV, CALL LIGHT WITHIN REACH, 4L OXIMIZER, HAS EXTENSION TO WALK TO RESTROOM. STABLE,
--- NOTE | 2020-11-02 19:04 | NUR ---
ENDORSED PT TO COOK HELPER DESSERT NURSE FOR CONTINUITY OF CARE, PT ON 4L OXIMIZER, CALL LIGHT WITHIN REACH. STABLE
--- NOTE | 2020-11-02 19:05 | NUR ---
RECEIVED PATIENT FROM AM SHIFT NURSE FOR CONTINUITY OF CARE. AAOX4. RESPIRATIONS EVEN, UNLABORED. CONTINUES ON O2 4L VIA OXIMIZER, O2SAT 92%. SKIN WARM, DRY. IV SITE NOTED TO LEFT FOREARM 22G PATENT/INTACT, INFUSING FLUIDS WELL. ABDOMEN SOFT, NONTENDER, NONDISTENDED. BOWEL SOUNDS ACTIVE X4 QUADRANTS. PATIENT IS CONTINENT OF B/B. PLAN OF CARE DISCUSSED. ISOLATION PRECAUTIONS OBSERVED. SAFETY PRECAUTIONS IN PLACE. CALL LIGHT WITHIN REACH.
[2020-11-02 20:00] VITALS: BP 98/66
--- NOTE | 2020-11-02 21:29 | NUR ---
PT RESTING COMFORTABLY NO DISTRESS NOTED
--- NOTE | 2020-11-02 21:30 | NUR ---
DUE MEDS GIVEN. NO S/S ACUTE DISTRESS. CALL LIGHT WITHIN REACH. ISOLATION PRECAUTIONS OBSERVED.
--- NOTE | 2020-11-02 23:00 | NUR ---
PATIENT IS AWAKE AND TALKING TO HER FAMILY ON CELL PHONE. NO S/S ACUTE DISTRESS. CALL LIGHT WITHIN REACH. ISOLATION PRECAUTIONS OBSERVED.
[2020-11-03] VITALS: BP 93/61
--- NOTE | 2020-11-03 01:40 | NUR ---
MADE ROUNDS. PATIENT IS ASLEEP. NO S/S ACUTE DISTRESS. CALL LIGHT WITHIN REACH. ISOLATION PRECAUTIONS IN PLACE.
--- NOTE | 2020-11-03 03:14 | NUR ---
PATIENT IS ASLEEP. NO S/S ACUTE DISTRESS. CALL LIGHT WITHIN REACH. SAFETY PRECAUTIONS IN PLACE.
[2020-11-03 04:00] VITALS: BP 99/67
--- NOTE | 2020-11-03 05:00 | NUR ---
PATIENT IS ASLEEP. NO S/S ACUTE DISTRESS. CALL LIGHT WITHIN REACH. SAFETY PRECAUTIONS IN PLACE. ISOLATION PRECAUTIONS OBSERVED.
[2020-11-03 07:05] LABS: EOSINOPHILS % (AUTO) 0.1 % (0.0-4.0); HEMATOCRIT 36.6 % (36-48); HEMOGLOBIN 12.1 g/dL (12.0-16.0); LYMPHOCYTES # (AUTO) 2.4 K/uL (2.5-16.5); LYMPHOCYTES % (AUTO) 13.2 % (20.5-51.1); MEAN CORPUSCULAR HEMOGLOBIN 30 pg (27-31); MEAN CORPUSCULAR HGB CONC 33 g/dL (33-37); MEAN CORPUSCULAR VOLUME 91.7 fL (80-94); MONOCYTES # (AUTO) 0.9 K/uL (0.8-1.0); MONOCYTES % (AUTO) 5.2 % (1.7-9.3); NEUTROPHILS # (AUTO) 14.7 K/uL (1.8-7.7); NEUTROPHILS % (AUTO) 81.5 % (42.2-75.2); PLATELET COUNT (AUTO) 315 K/uL (140-450); RED BLOOD CELL COUNT(AUTO) 3.99 MIL/uL (4.20-5.40); RED CELL DISTRIBUTION WIDTH 14.3 % (11.6-13.7); WHITE BLOOD COUNT (AUTO) 18.1 K/uL (4.8-10.8)
[2020-11-03 07:06] LABS: ANION GAP 9.6 (8-16); CARBON DIOXIDE 29.5 mmol/L (21-32); CREATININE 0.6 mg/dL (0.6-1.3); POTASSIUM 4.1 mmol/L (3.5-5.1)
--- NOTE | 2020-11-03 07:25 | NUR ---
ENDORSED PATIENT TO AM SHIFT NURSE FOR CONTINUITY OF CARE.
[2020-11-03 07:36] LABS: MAGNESIUM 2.1 mg/dL (1.8-2.4); PHOSPHORUS 3.2 mg/dL (2.5-4.9)
--- NOTE | 2020-11-03 07:36 | NUR ---
REC'D REPORT FROM ADJUNCT ENGLISH INSTRUCTOR NURSE, PT SLEEPING . ON 4L OXIMIZER, L.FA 22G INFUSING 50ML/HR. NO SIGN OF DISTRESS, STABLE
[2020-11-03 08:00] VITALS: BP 91/56
[2020-11-03] MEDS: NACL 0.9% 1,000 ML IV SCH (08:15)
[2020-11-03] MEDS: ENOXAPARIN 40 MG/0.4 ML SYR SUBQ SCH (08:28)
[2020-11-03] MEDS: VITAMIN D 400 IU TAB PO SCH (08:33)
[2020-11-03] MEDS: ZINC SULF 220 MG CAP PO SCH ×2 (08:34→21:41)
[2020-11-03] MEDS: LEVOFLOXACIN 750 MG/D5W PREMIX 150 ML IV SCH (08:34)
[2020-11-03] MEDS: ASCORBIC ACID 500 MG TAB PO SCH (08:34)
--- NOTE | 2020-11-03 08:49 | NUR ---
ADMINISTERED MEDICATIONS PER MD ORDER, PT TOLERATED PROCEDURE WELL, PT HAS IS AT BEDSIDE CONTINUES TO USE.
--- NOTE | 2020-11-03 11:28 | NUR ---
PT SITTING UP IN CHAIR, WATCHING T.V. NO SIGN OF DISTRESS, STABLE
[2020-11-03 12:00] VITALS: BP 96/61
[2020-11-03 16:00] VITALS: BP 100/59
--- NOTE | 2020-11-03 19:40 | NUR ---
ENDORSED PT TO KEY WORKER NURSE ,PT STABLE, NO SIGN OF DISTRESS
--- NOTE | 2020-11-03 19:41 | NUR ---
RECD. SITTING ON BED, AWAKE, A/OX4. WITH SLIGHT SOB , ON 0XIMIZER 4 LITERS, SATURATING 94%. IV OF NS INFUSING, LEFT FOREARM G22. USES INCENTIVE SPIROMETER. ABLE TO AMBULATE BY HERSELF. ENCOURAGED TO DRINK MORE FLUIDS. SAFETY MEASURES ENFORCED. BED IN THE LOWEST POSITION, SIDE RAILS UP. DENIES PAIN 0/10.
[2020-11-03 20:00] VITALS: BP 95/57
--- NOTE | 2020-11-03 21:41 | NUR ---
DUE MEDICATION FOR THE NIGHT GIVEN. NO SOB NOTED.
--- NOTE | 2020-11-04 | NUR ---
SLEEPING COMFORTABLY IN BED.
--- NOTE | 2020-11-04 02:00 | NUR ---
ON HER RIGHT SIDE COMFORTABLY SLEEPING.
[2020-11-04 04:00] VITALS: BP 97/54
[2020-11-04] MEDS: NACL 0.9% 1,000 ML IV SCH ×2 (04:15→20:46)
--- NOTE | 2020-11-04 05:00 | NUR ---
AWAKE, WARM BLANKETS GIVEN, NO SOB.
[2020-11-04 06:24] LABS: BASOPHILS # (AUTO) 0.1 K/uL (0.00-0.22); BASOPHILS % (AUTO) 0.4 % (0.0-2.0); EOSINOPHILS # (AUTO) 0.3 K/uL (0-0.4); EOSINOPHILS % (AUTO) 2.2 % (0.0-4.0); HEMATOCRIT 36.2 % (36-48); HEMOGLOBIN 12.3 g/dL (12.0-16.0); LYMPHOCYTES # (AUTO) 3.6 K/uL (2.5-16.5); LYMPHOCYTES % (AUTO) 23.6 % (20.5-51.1); MEAN CORPUSCULAR HEMOGLOBIN 31 pg (27-31); MEAN CORPUSCULAR HGB CONC 34 g/dL (33-37); MEAN CORPUSCULAR VOLUME 91.7 fL (80-94); MONOCYTES # (AUTO) 0.8 K/uL (0.8-1.0); MONOCYTES % (AUTO) 5.6 % (1.7-9.3); NEUTROPHILS # (AUTO) 10.4 K/uL (1.8-7.7); NEUTROPHILS % (AUTO) 68.2 % (42.2-75.2); PLATELET COUNT (AUTO) 304 K/uL (140-450); RED BLOOD CELL COUNT(AUTO) 3.94 MIL/uL (4.20-5.40); RED CELL DISTRIBUTION WIDTH 14.8 % (11.6-13.7); WHITE BLOOD COUNT (AUTO) 15.2 K/uL (4.8-10.8)
--- NOTE | 2020-11-04 07:00 | NUR ---
SATURATING 96 - 100% ON 4 LITERS 02 OXYMIZER. CONDITION REMAIN STABLE. STILL ON IV ANTIBIOTICS.
--- NOTE | 2020-11-04 07:10 | NUR ---
ENDORSED TO AM SHIFT NURSE FOR CONTINUITY OF CARE.
--- NOTE | 2020-11-04 07:18 | NUR ---
RECEIVED PT FROM COMMUNITY RELATIONS REP NURSEFAYE, PT IS AWAKE AND LYING ON THE BED WITH SIDE RAILS UP AND CALL LIGHT WITHIN REACH, PT IS ON O2 4L VIA OXYMIZER, SATURATING AT 94%, GEORGIAN SPEAKING,IV LINE NOTED ON THE LFA G. 22 ON IVF NS AT 50ML/ HR, NO SIGN OF DISTRESS NOTED AND WILL CONTINUE TO MONITOR PT
[2020-11-04 08:00] VITALS: BP 90/58
[2020-11-04 09:03] LABS: LACTATE DEHYDROGENASE 240 U/L (81-234); MAGNESIUM 1.8 mg/dL (1.8-2.4); PHOSPHORUS 2.1 mg/dL (2.5-4.9)
[2020-11-04 09:16] LABS: ANION GAP 10.4 (8-16); CARBON DIOXIDE 30.3 mmol/L (21-32); CHLORIDE 103 mmol/L (98-107); CREATININE 0.6 mg/dL (0.6-1.3); GFR ARICAN-AMERICAN 131 mL/min (>90); GLUCOSE 87 mg/dL (74-106); POTASSIUM 4.7 mmol/L (3.5-5.1); SODIUM SERUM 139 mmol/L (136-145); TOTAL BILIRUBIN 0.5 mg/dL (0.0-1.0); UREA NITROGEN, BLOOD 16 mg/dL (7-18)
[2020-11-04 09:17] LABS: ALBUMIN 2.5 g/dL (3.4-5.0); ASPARTATE AMINOTRANSFERASE 92 U/L (15-37)
[2020-11-04] MEDS: VITAMIN D 400 IU TAB PO SCH (10:40)
[2020-11-04] MEDS: ASCORBIC ACID 500 MG TAB PO SCH (10:41)
[2020-11-04] MEDS: ZINC SULF 220 MG CAP PO SCH ×2 (10:41→20:46)
[2020-11-04] MEDS: LEVOFLOXACIN 750 MG/D5W PREMIX 150 ML IV SCH (10:41)
--- NOTE | 2020-11-04 10:41 | NUR ---
PT WAS GIVEN THE SCHEDULED AM MEDICATIONS NOW, TOLERATED AND WILL MONITOR PT.
--- NOTE | 2020-11-04 12:30 | NUR ---
PT WAS SHIFTED TO 3L O2 NC AND PT IS SATURATING AT 96%, WILL CONTINUE TO MONITOR PT.
--- NOTE | 2020-11-04 14:15 | NUR ---
PT'S O2 WAS TITRATED TO 2L NC NOW AND SATURATING AT 94%, WILL MONITOR PT.
[2020-11-04 16:00] VITALS: BP 94/59
--- NOTE | 2020-11-04 16:20 | NUR ---
PT IS SATURATING AT 95% NOW ON O2 2L NC. WILL CONTINUE TO MONITOR PT.
--- NOTE | 2020-11-04 19:24 | NUR ---
ENDORSED PT TO FARM TRUCK DRIVER NURSEKRISSY FOR CONTINUITY OF CARE.
[2020-11-04 20:00] VITALS: BP 100/62
--- NOTE | 2020-11-05 | NUR ---
MADE ROUNDS , NO S/SX OF ACUTE DISTRESS NOTED . O2 SAT WNL . CALL LIGHT WITHIN REACH .
--- NOTE | 2020-11-05 04:00 | NUR ---
O2 SAT WNL . NO S/SX OF ACUTE DISTRESS NOTED . CALL LIGHT WITHIN REACH .
[2020-11-05 07:10] LABS: BASOPHILS # (AUTO) 0.1 K/uL (0.00-0.22); BASOPHILS % (AUTO) 0.4 % (0.0-2.0); EOSINOPHILS # (AUTO) 0.6 K/uL (0-0.4); EOSINOPHILS % (AUTO) 4.1 % (0.0-4.0); HEMATOCRIT 35.2 % (36-48); HEMOGLOBIN 11.9 g/dL (12.0-16.0); LYMPHOCYTES % (AUTO) 21.1 % (20.5-51.1); MEAN CORPUSCULAR HEMOGLOBIN 31 pg (27-31); MEAN CORPUSCULAR HGB CONC 34 g/dL (33-37); MONOCYTES # (AUTO) 0.8 K/uL (0.8-1.0); MONOCYTES % (AUTO) 5.3 % (1.7-9.3); NEUTROPHILS % (AUTO) 69.1 % (42.2-75.2); PLATELET COUNT (AUTO) 270 K/uL (140-450); RED BLOOD CELL COUNT(AUTO) 3.83 MIL/uL (4.20-5.40); RED CELL DISTRIBUTION WIDTH 14.9 % (11.6-13.7); WHITE BLOOD COUNT (AUTO) 14.4 K/uL (4.8-10.8)
--- NOTE | 2020-11-05 07:25 | NUR ---
RECEIVED REPORT FROM MANAGER HIV RN FOR CONTINUITY OF CARE. PATIENT RESTING IN BED, AWAKE, ABLE TO MAKE NEEDS KNOWN. WALLISIAN SPEAKING. RESPIRATORY EVEN UNLABORED WITH 2L NC. PER MANAGER HIV RN, PATIENT'S O2 SAT 95%, TOLERATED 2L NC WELL LAST NIGHT. SKIN INTACT, IV TO LEFT FOREARM 22G INFUSING NS@50ML/HR. SAFETY MEASURES IN PLACE, CALL LIGHT WITHIN REACH. WILL CONTINUE TO MONITOR.
[2020-11-05 07:41] LABS: ALBUMIN 2.3 g/dL (3.4-5.0); ANION GAP 8.2 (8-16); CARBON DIOXIDE 31.6 mmol/L (21-32); CREATININE 0.6 mg/dL (0.6-1.3); MAGNESIUM 2.3 mg/dL (1.8-2.4); PHOSPHORUS 3.7 mg/dL (2.5-4.9); POTASSIUM 4.8 mmol/L (3.5-5.1); TOTAL BILIRUBIN 0.5 mg/dL (0.0-1.0)
[2020-11-05 08:00] VITALS: BP 88/54
[2020-11-05] MEDS: ZINC SULF 220 MG CAP PO SCH (08:56)
[2020-11-05] MEDS: VITAMIN D 400 IU TAB PO SCH (08:56)
[2020-11-05] MEDS: LEVOFLOXACIN 750 MG/D5W PREMIX 150 ML IV SCH (08:57)
[2020-11-05] MEDS: ASCORBIC ACID 500 MG TAB PO SCH (08:57)
--- NOTE | 2020-11-05 08:59 | NUR ---
SCHEDULED MORNING MEDICATIONS GIVEN, EDUCATION PROVIDED. VERBALIZED UNDERSTANDING. NO SOB ON 2L NC. WILL CONTINUE TO MONITOR.
--- NOTE | 2020-11-05 11:50 | NUR ---
PATIENT RESTING IN BED, AWAKE, DENIES PAIN OR DISCOMFORT WITH 2L NC. CALL LIGHT WITHIN REACH. WILL CONTINUE TO MONITOR.
--- NOTE | 2020-11-05 13:05 | NUR ---
PATIENT RESTING IN BED, DENIES PAIN OR DISCOMFORT. INFORMED PATIENT TO USE INCENTIVE SPIROMETER, PATIENT VERBALIZED UNDERSTANDING. WILL CONTINUE TO MONITOR.
--- NOTE | 2020-11-05 17:13 | NUR ---
PATIENT PLACED ON ROOM AIR TRIAL SATURATIONS MAINTAINED FOR A LONG TIME AT 905 HR INCREASED FROM 107 TO 119, SATURATIONS DROPPED TO 88%.
--- NOTE | 2020-11-05 19:45 | NUR ---
ENDORSED PATIENT TO KNOWLEDGE MANAGER RN KISSES FOR CONTINUITY OF CARE, PATIENT IN STABLE CONDITION WITH 2L NC.
[2020-11-05 20:00] VITALS: BP 93/52
--- NOTE | 2020-11-05 21:10 | NUR ---
RECEIVED REPORT FROM CHARGE NURSE (JAVY). PT IN BED RESTING WITH HOB ELEVATED. PT AAOX4, AMBULATORY, ABLE TO MAKE NEEDS KNOWN. RESPIRATIONS ARE EVEN AND UNLABORED TO O2 2LPM/NC. PT NOT IN DISTRESS. ABDOMEN IS SOFT AND NON-TENDER, ACTIVE BOWEL SOUNDS NOTED. SKIN IS WARM, DRY, AND INTACT. PT WITH IV ACCESS ON LEFT FA G22, SALINE LOCKED. PT DENIES ANY PAIN OR DISCOMFORT AT THIS TIME. NO REQUESTS MADE. PT KEPT COMFORTABLE. SAFETY MEASURES IN PLACE, CALL LIGHT WITHIN REACH. WILL CONTINUE TO MONITOR.
--- NOTE | 2020-11-06 00:06 | NUR ---
PT WATCHING TV, O2 IN PLACE. PT DENIES ANY PAIN OR DISCOMFORT AT THIS TIME. O2 TITRATED DOWN TO 1LPM. WILL CONTINUE TO MONITOR.
--- NOTE | 2020-11-06 02:29 | NUR ---
ASLEEP. VISIBLE CHEST RISE AND FALL NOTED. O2 1LPM/NC IN PLACE. NO S/SX OF DISTRESS NOTED. PT KEPT COMFORTABLE. CALL LIGHT WITHIN REACH. WILL CONTINUE TO MONITOR.
[2020-11-06 04:00] VITALS: BP 98/59
--- NOTE | 2020-11-06 04:19 | NUR ---
VS STABLE. O2 IN PLACE. O2 SAT 92%. PT DENIES ANY . NO REQUESTS MADE. KEPT COMFORTABLE. CALL LIGHT WITHIN REACH. WILL CONTINUE TO MONITOR.
[2020-11-06 07:02] LABS: BASOPHILS # (AUTO) 0.1 K/uL (0.00-0.22); BASOPHILS % (AUTO) 0.5 % (0.0-2.0); EOSINOPHILS # (AUTO) 0.7 K/uL (0-0.4); EOSINOPHILS % (AUTO) 4.9 % (0.0-4.0); HEMATOCRIT 36.1 % (36-48); HEMOGLOBIN 12.2 g/dL (12.0-16.0); LYMPHOCYTES # (AUTO) 3.1 K/uL (2.5-16.5); LYMPHOCYTES % (AUTO) 22.9 % (20.5-51.1); MEAN CORPUSCULAR HEMOGLOBIN 31 pg (27-31); MEAN CORPUSCULAR HGB CONC 34 g/dL (33-37); MEAN CORPUSCULAR VOLUME 92.2 fL (80-94); MONOCYTES # (AUTO) 0.6 K/uL (0.8-1.0); MONOCYTES % (AUTO) 4.4 % (1.7-9.3); NEUTROPHILS # (AUTO) 9.1 K/uL (1.8-7.7); NEUTROPHILS % (AUTO) 67.3 % (42.2-75.2); PLATELET COUNT (AUTO) 250 K/uL (140-450); RED BLOOD CELL COUNT(AUTO) 3.92 MIL/uL (4.20-5.40); WHITE BLOOD COUNT (AUTO) 13.5 K/uL (4.8-10.8)
--- NOTE | 2020-11-06 07:12 | NUR ---
ENDORSED TO DAY SHIFT NURSE FOR CONTINUITY OF CARE
--- NOTE | 2020-11-06 07:13 | NUR ---
RECEIVED REPORT FROM LIME VAT TENDER RN FOR CONTINUITY OF CARE. PATIENT ASLEEP WITH RIGHT LATERAL POSITION, O2 SAT 96-97% WITH 1L NC. PER LIME VAT TENDER, PATIENT'S BEST O2 SAT ON RA WAS 88%, AND THEN PATIENT TOLERATED 1L VIA NC WELL. IV SITE TO LEFT FOREARM 22G SL, INTACT. SKIN WARM TO TOUCH. NO ACUTE DISTRESS NOTED. SAFETY MEASURES IN PLACE, WILL CONTINUE TO MONITOR.
[2020-11-06 07:40] LABS: ANION GAP 7.1 (8-16); CREATININE 0.6 mg/dL (0.6-1.3); POTASSIUM 5.1 mmol/L (3.5-5.1)
[2020-11-06 08:00] VITALS: BP 108/69
[2020-11-06 08:28] LABS: MAGNESIUM 2.4 mg/dL (1.8-2.4); PHOSPHORUS 3.6 mg/dL (2.5-4.9)
[2020-11-06] MEDS: ENOXAPARIN 40 MG/0.4 ML SYR SUBQ SCH (08:50)
--- NOTE | 2020-11-06 09:05 | NUR ---
SCHEDULED MORNING MEDICATIONS GIVEN. EDUCATION PROVIDED, PATIENT VERBALIZED UNDERSTANDING. O2 SAT 97% WITH 1L NC. TITRATE TO ROOM AIR. OBSERVED FOR 5 MINS. O2 SAT 92%, INFORMED PATIENT THAT IF HER O2 SAT KEEPS ABOVE 92% IN RA, SHE CAN GO HOME. PATIENT HAS STRONG WILL TO GO HOME. WILL CONTINUE TO MONITOR.
--- NOTE | 2020-11-06 09:27 | NUR ---
PATIENT'S O2 DESAT TO 89% IN RA. PATIENT PUT BACK ON 1L NC, O2 SAT WENT BACK TO 95%. WILL CONTINUE TO MONITOR.
--- NOTE | 2020-11-06 14:02 | NUR ---
PATIENT'S O2 SAT 92% IN RA. PATIENT BEEN ON ROOM AIR X 1 HOUR, PATIENT TOLERATED FINE. PER PATIENT. SHE HAS TO PUT ON THE OXYGEN WHEN SHE WALK TO THE RESTROOM. PATIENT DENIES SOB WHEN RESTING IN BED IN RA. WILL CONTINUE TO MONITOR.
--- NOTE | 2020-11-06 17:24 | NUR ---
PATIENT'S O2 SAT 91% IN RA. HR 104. PATIENT HAS NO SOB WHEN RESTING. PATIENT STATED THAT MILD SOB ON EXERTION. NO ACUTE DISTRESS NOTED, WILL CONTINUE TO MONITOR.
--- NOTE | 2020-11-06 19:22 | NUR ---
ENDORSED PATIENT TO DORMITORY COUNSELOR RN FOR CONTINUITY OF CARE, PATIENT IN STABLE CONDITION
[2020-11-06 21:12] VITALS: BP 105/73
[2020-11-07 03:26] VITALS: BP 111/70
[2020-11-07 03:48] VITALS: BP 112/72
--- NOTE | 2020-11-07 04:00 | NUR ---
ASSISTED PT TO BATHROOM ON HOURLY ROUNDS. PT BECAME VERY FATIGUED AND STARTED COUGHING WITH NOTED SOB, LABORED BREATHING AND TACHYPNEA. RR=24, O2 SATURATION WAS AT 82% ON RA. PT HAD BEEN SATURATING >92% ON RA AFTER TITRATING OFF 02 EARLIER ON . PLACED PT ON 02 3L VIA NC AND CALLED RT TO GIVE BREATHING TREATMENT. SATURATION INCREASED TO 95% WITH O2 3L NC. ALBUTEROL INHALER TX GIVEN BY RT AT BEDSIDE. REASSESSED PT VITALS NOTED IN CHART. PT NOW BREATHING WNL. WILL CONT TO MONITOR RESP STATUS.
--- NOTE | 2020-11-07 07:20 | NUR ---
RECEIVED PT FROM MEDICAL STAFF ASSISTANT NURSE, PT IS RESTING IN BED, IV NOTED TO L. WRIST 22G, CONTINENT, RECEIVED REPORT THAT PT HAS BEEN EXPERIENCING SOME SOB OVERNIGHT WITH AMBULATION, PT STATES SHE IS NOT EXPERIENCING SOB NOW, NO SIGNS OF DISTRESS NOTED, ON 2LNC, SAFETY AND FALL PRECAUTIONS IN PLACE, CALL LIGHT WITHIN REACH, WILL CONTINUE TO MONITOR.
[2020-11-07 07:21] LABS: BASOPHILS # (AUTO) 0.1 K/uL (0.00-0.22); BASOPHILS % (AUTO) 0.5 % (0.0-2.0); EOSINOPHILS # (AUTO) 0.6 K/uL (0-0.4); HEMATOCRIT 35.4 % (36-48); LYMPHOCYTES # (AUTO) 2.9 K/uL (2.5-16.5); LYMPHOCYTES % (AUTO) 23.5 % (20.5-51.1); MEAN CORPUSCULAR HEMOGLOBIN 31 pg (27-31); MEAN CORPUSCULAR HGB CONC 34 g/dL (33-37); MEAN CORPUSCULAR VOLUME 92.2 fL (80-94); MONOCYTES # (AUTO) 0.7 K/uL (0.8-1.0); MONOCYTES % (AUTO) 5.6 % (1.7-9.3); NEUTROPHILS % (AUTO) 65.4 % (42.2-75.2); PLATELET COUNT (AUTO) 237 K/uL (140-450); RED BLOOD CELL COUNT(AUTO) 3.84 MIL/uL (4.20-5.40); RED CELL DISTRIBUTION WIDTH 15.3 % (11.6-13.7); WHITE BLOOD COUNT (AUTO) 12.3 K/uL (4.8-10.8)
[2020-11-07 07:29] LABS: ANION GAP 9.6 (8-16); CARBON DIOXIDE 29.8 mmol/L (21-32); CREATININE 0.7 mg/dL (0.6-1.3); POTASSIUM 4.4 mmol/L (3.5-5.1)
[2020-11-07 07:31] LABS: MAGNESIUM 2.4 mg/dL (1.8-2.4)
[2020-11-07 08:00] VITALS: BP 97/53
[2020-11-07] MEDS: ENOXAPARIN 40 MG/0.4 ML SYR SUBQ SCH (08:03)
--- NOTE | 2020-11-07 08:07 | NUR ---
SCHEDULED LOVENOX ADMINISTERED, PT IS RESTING IN BED, BP NOTED TO BE SLIGHTLY LOW 97/53, EDUCATED PT ON IMPORTANCE OF ADEQUATE HYDRATION AND USE OF CALL LIGHT FOR ANY NEEDS TO AMBULATE, WILL CONTINUE TO MONITOR.
--- NOTE | 2020-11-07 10:06 | NUR ---
PT IS RESTING IN BED, NO SIGNS OF DISTRESS NOTED, PT STATES THAT SHE IS FEELING WELL, CALL LIGHT WITHIN REACH, WILL CONTINUE TO MONITOR.
--- NOTE | 2020-11-07 11:57 | NUR ---
ASSISTED PT TO RESTROOM, PT EXPERIENCED SOME SOB, ASSESSED O2 LEVEL, SATURATION AT 82%, ADMINISTERED 5L NC, OXYGEN AND O2 SATURATION RETURNED TO 96%, WITH PT BACK IN BED, REDUCED OXYGEN TO 2L NC, PT IS CURRENTLY SATURATING AT 94%, PT STATES SHE DOES NOT CURRENTLY FEEL SOB, EDUCATION PROVIDED REGARDING USE OF COMMODE, COMMODE AT BEDSIDE NOW, WILL CONTINUE TO MONITOR.
--- NOTE | 2020-11-07 13:44 | NUR ---
ROUNDS MADE, ALL NEEDS MET, NO S/S OF DISTRESS NOTED, WILL CONTINUE TO MONITOR.
--- NOTE | 2020-11-07 14:41 | NUR ---
11/07/20 RD FOLLOW UP COMPLETED. PLEASE REFER TO NUTRITION PROGRESS NOTE UNDER CARE ACTIVITY FOR ESTIMATED NUTRITION NEEDS. RD RECOMMENDATIONS: 1. CONTINUE CARDIAC DIET WITH ENSURE BID 2. RD PROVIDED NUTRITION EDUCATION FOR COVID-19 3. ENCOURAGE PO INTAKE ABOVE 75% 4. RD WILL F/U 7 DAYS; LOW RISK JENNIFER CASTANEDA MBA, RD
--- NOTE | 2020-11-07 15:14 | NUR ---
PT DAUGHTER WAS HERE TO SERVICE DELIVERY MANAGEMENT CONSULTANT INSURANCE APPLICATION, PROVIDED DAUGHTER WITH FILLED APPLICATION NOW, PT IS RESTING IN BED, NO SIGNS OF DISTRESS NOTED, NEEDS MET, CALL LIGHT WITHIN REACH, WILL CONTINUE TO MONITOR.
[2020-11-07 16:00] VITALS: BP 103/61
--- NOTE | 2020-11-07 16:25 | NUR ---
RESPONDED TO PT CALL LIGHT, PT WAS SITTING UP IN BEDSIDE COMMODE, DESATURATION TO 86% O2, AIDED PT BACK INTO BED, OXYGEN SATURATION CURRENTLY AT 94%, REEDUCATED PT ON IMPORTANCE OF CALLING BEFORE ACTIVITY/MOVEMENT TO ENSURE ADEQUATE OXYGEN LEVELS, INCENTIVE SPIROMETER IS AT BEDSIDE, REEDUCATED PT ON USE OF INCENTIVE SPIROMETER, WILL CONTINUE TO MONITOR.
--- NOTE | 2020-11-07 18:31 | NUR ---
PT USED CALL LIGHT FOR AID BEFORE USE OF BEDSIDE COMMODE, PT OXYGEN DESATURATED TO 91% WHILE USING COMMODE, OXYGEN RETURNED TO 97% AFTER RETURNING TO BED, PT STATES SHE WAS LESS SHORT OF BREATH, EDUCATED PT ON NEED TO USE CALL LIGHT BEFORE ATTEMPTING COMMODE USE OR ANY ACTIVITY, CALL LIGHT WITHIN REACH, WILL CONTINUE TO MONITOR.
--- NOTE | 2020-11-07 19:10 | NUR ---
ENDORSED PT TO SIX SIGMA BLACK BELT ENGINEER NURSE FOR CONTINUITY OF CARE.
[2020-11-07 20:00] VITALS: BP 107/71
--- NOTE | 2020-11-08 06:02 | NUR ---
PT MAINTAINED O2 SATURATION ABOVE 95% ON O2 2L NC DURING SHIFT. PT STILL GETS TACHYPNEIC/SOB WITH EXERTION OR ACTIVITY. PT CURRENTLY USING BSC TO VOID. INCENTIVE SPIROMETER AT BEDSIDE AND PT PERFORMING Q 1 HR WHILE AWAKE. TITRATED O2 DOWN TO 1.5L VIA NC @ 0530. WILL REASSESS O2 SATURATION AT CHANGE OF SHIFT TO ASSESS FOR TOLERANCE.
[2020-11-08 06:21] LABS: BASOPHILS % (AUTO) 0.4 % (0.0-2.0); EOSINOPHILS # (AUTO) 0.5 K/uL (0-0.4); EOSINOPHILS % (AUTO) 4.7 % (0.0-4.0); HEMOGLOBIN 12.1 g/dL (12.0-16.0); LYMPHOCYTES # (AUTO) 3.1 K/uL (2.5-16.5); MEAN CORPUSCULAR HEMOGLOBIN 32 pg (27-31); MEAN CORPUSCULAR HGB CONC 35 g/dL (33-37); MEAN CORPUSCULAR VOLUME 91.7 fL (80-94); MONOCYTES # (AUTO) 0.8 K/uL (0.8-1.0); MONOCYTES % (AUTO) 6.8 % (1.7-9.3); NEUTROPHILS # (AUTO) 6.9 K/uL (1.8-7.7); NEUTROPHILS % (AUTO) 61.1 % (42.2-75.2); PLATELET COUNT (AUTO) 217 K/uL (140-450); RED BLOOD CELL COUNT(AUTO) 3.81 MIL/uL (4.20-5.40); RED CELL DISTRIBUTION WIDTH 15.2 % (11.6-13.7); WHITE BLOOD COUNT (AUTO) 11.4 K/uL (4.8-10.8)
[2020-11-08 07:00] LABS: ANION GAP 11.3 (8-16); CARBON DIOXIDE 27.8 mmol/L (21-32); CREATININE 0.5 mg/dL (0.6-1.3); POTASSIUM 4.1 mmol/L (3.5-5.1)
--- NOTE | 2020-11-08 07:05 | NUR ---
RECEIVED PT FROM UNIVERSITY TUTOR NURSE, PT IS RESTING IN BED, PT STATES NO NEEDS AT THIS TIME, ON 1.5L NC, CONTINENT, IV TO L WRIST 22G SALINE LOCK, COMMODE AT BEDSIDE, CALL LIGHT WITHIN REACH, SAFETY AND FALL PRECAUTIONS IN PLACE, WILL CONTINUE TO MONITOR.
[2020-11-08 08:00] VITALS: BP 93/52
[2020-11-08] MEDS: ENOXAPARIN 40 MG/0.4 ML SYR SUBQ SCH (08:39)
--- NOTE | 2020-11-08 08:52 | NUR ---
BP SLIGHTLY LOW, 93/61, ADVISED PT TO STAY HYDRATED, DRINK WATER, WILL NOTIFY , LOVENOX ADMINISTERED, CALL LIGHT WITHIN REACH, WILL CONTINUE TO MONITOR.
--- NOTE | 2020-11-08 12:26 | NUR ---
REASSESSED BP, NOW 100/66, REEDUCATED PT IN IMPORTANCE OF HYDRATION, 1 BOWEL MOVEMENT NOTED, NEEDS MET, CALL LIGHT WITHIN REACH, WILL CONTINUE TO MONITOR.
--- NOTE | 2020-11-08 14:28 | NUR ---
MADE ROUNDS, PT IS RESTING IN BED, NO SIGNS OF DISTRESS NOTED, NEEDS MET, CALL LIGHT W/IN REACH, WILL CONTINUE TO MONITOR.
--- NOTE | 2020-11-08 17:05 | NUR ---
TITRATED PT DOWN TO 1 L/M NC, PT CURRENTLY SATURATING AT 96% O2, HR 99,EDUCATION PROVIDED REGARDING IMPORTANCE OF UTILIZING THE CALL LIGHT IF FEELING SHORT OF BREATH, WILL CONTINUE TO MONITOR.
--- NOTE | 2020-11-08 19:18 | NUR ---
ENDORSED PT TO CORPORATE ASSOCIATE NURSE FOR CONTINUITY OF CARE.
--- NOTE | 2020-11-08 19:20 | NUR ---
RECEIVED REPORT FROM GONZALEZ AVILA. PT AOX4 ON 1L NC. NO S/S RESPIRATORY DISTRESS. NO C/O PAIN AT THIS TIME. IV SITE L WRIST 22, S.L. SAFETY MEASURES IN PLACE. CALL LIGHT WITHIN REACH. WILL CONTINUE TO MONITOR
[2020-11-08 20:00] VITALS: BP 102/64
--- NOTE | 2020-11-08 20:42 | NUR ---
PT RESTING COMFORTABLY AWAKE IN BED ON 1LNC. PT DENIES SOB W/ 0 DISTRESS NOTED WILL CONTINUE TO MONITOR
--- NOTE | 2020-11-08 23:15 | NUR ---
PT RESTING IN BED. RESPIRATIONS EVEN UNLABORED. DENIES PAIN. NC IN PLACE. NO S/S ACUTE DISTRESS NOTED. WILL CONTINUE TO MONITOR
--- NOTE | 2020-11-09 02:49 | NUR ---
PT ASLEEP IN BED. NC IN PLACE. NO S/S ACUTE DISTRESS NOTED, WILL CONTINUE TO MONITOR
[2020-11-09 04:00] VITALS: BP 101/71
--- NOTE | 2020-11-09 07:10 | NUR ---
ENDORSED PT TO DAY RN FOR CONTINUITY OF CARE. PT IS IN STABLE CONDITION
--- NOTE | 2020-11-09 07:15 | NUR ---
HANDOFF REPORT RECEIVED FROM NUTRITIONAL CHEMIST RN. POC REVIEWED AND DISCUSSED. PT IS RESTING AND CALM. DENIES DISCOMFORT. ON 1L O2 VIA NC. NO SOB. DENIES CHEST PAIN. AFEBRILE. KEPT PT ON ISOLATION PRECAUTION. ENCOURAGED PT TO IS. PT DEMONSTRATED UNDERSTANDING. CALL LIGHT WITHIN REACH. WILL CONTINUE TO MONITOR.
[2020-11-09 07:58] LABS: ANION GAP 8.8 (8-16); CARBON DIOXIDE 31.1 mmol/L (21-32); CREATININE 0.5 mg/dL (0.6-1.3); POTASSIUM 4.9 mmol/L (3.5-5.1)
[2020-11-09 08:00] VITALS: BP 100/58
[2020-11-09 08:24] LABS: BASOPHILS # (AUTO) 0.1 K/uL (0.00-0.22); BASOPHILS % (AUTO) 0.5 % (0.0-2.0); EOSINOPHILS # (AUTO) 0.6 K/uL (0-0.4); EOSINOPHILS % (AUTO) 5.7 % (0.0-4.0); HEMATOCRIT 35.4 % (36-48); HEMOGLOBIN 12.1 g/dL (12.0-16.0); LYMPHOCYTES # (AUTO) 2.7 K/uL (2.5-16.5); LYMPHOCYTES % (AUTO) 27.4 % (20.5-51.1); MEAN CORPUSCULAR HEMOGLOBIN 32 pg (27-31); MEAN CORPUSCULAR HGB CONC 34 g/dL (33-37); MEAN CORPUSCULAR VOLUME 92.5 fL (80-94); MONOCYTES # (AUTO) 0.7 K/uL (0.8-1.0); NEUTROPHILS # (AUTO) 5.8 K/uL (1.8-7.7); NEUTROPHILS % (AUTO) 59.4 % (42.2-75.2); PLATELET COUNT (AUTO) 223 K/uL (140-450); RED BLOOD CELL COUNT(AUTO) 3.83 MIL/uL (4.20-5.40); RED CELL DISTRIBUTION WIDTH 15.3 % (11.6-13.7); WHITE BLOOD COUNT (AUTO) 9.8 K/uL (4.8-10.8)
[2020-11-09] MEDS: ENOXAPARIN 40 MG/0.4 ML SYR SUBQ SCH (08:57)
--- NOTE | 2020-11-09 10:47 | NUR ---
PT HAS BEEN PLACED ON A ROOM AIR TRIAL FOR 20 MINUTES. PT DID WELL AND KEPT OXYGEN SATURATION GREATER THAN 92%. I LEFT PT ON ROOM AIR. PT IS COMFORTABLE WITH NO SOB OR INCREASED WORK OF BREATHING.
--- NOTE | 2020-11-09 11:05 | NUR ---
PT ON ROOM AIR. NO S/S OF RESPIRATORY DISTRESS. RESTING. NEEDS ATTENDED,
[2020-11-09 16:00] VITALS: BP 103/68
--- NOTE | 2020-11-09 16:00 | NUR ---
PT TOLERATES WELL TO ROOM AIR. NO S/S OF RESPIRATORY DISTRESS. WILL CONTINUE TO MONITOR.
--- NOTE | 2020-11-09 19:00 | NUR ---
PATIENT RECEIVED IN BED AAOX4. RESPIRATIONS EVEN AND NONLABORED. CONTINUES ON O2 4L VIA OXYMIZER, O2SAT 92%. SKIN WARM, DRY. IV SITE NOTED TO LEFT FOREARM 22G PATENT/INTACT, INFUSING NS @ 100CC/HR. SITE INTACT, NO INFILTRATION NOTED. ABDOMEN SOFT, NONTENDER, NONDISTENDED. BOWEL SOUNDS ACTIVE X4 QUADRANTS. PATIENT IS CONTINENT OF B/B. DISCUSSED WITH PATIENT RN PLAN OF CARE. RN EDUCATED TO FALL AND SAFETY PRECAUTIONS, MEDICATION MANAGEMENT AND PLAN OF CARE. ISOLATION PRECAUTIONS OBSERVED AND MAINTAINED. SAFETY PRECAUTIONS ONGOING. FALL AND SAFETY MAINTAINED. CALL LIGHT WITHIN REACH.
--- NOTE | 2020-11-09 19:15 | NUR ---
ENDORSED PT TO SIDE SAWYER RN. POC DISCUSSED AND REVIEWED. PT IS STABLE. NO CHANGE OF CONDITION.
--- NOTE | 2020-11-09 19:15 | NUR ---
RECD. SITTING ON BED, AWAKE, A/OX4. WITH SOB ON EXERTION. 02 SAT - 91% ON ROOM AIR. USES THE BEDSIDE COMMODE. IV SALINE LOCK AT THE LEFT WRIST G22, PATENT AND INTACT. SAFETY MEASURES ENFORCED, BED IN THE LOWEST POSITION, SIDE RAILS UP, CALL LIGHT IN REACH. DENIES PAIN 0/10.
[2020-11-09 20:00] VITALS: BP_SYST 116; BP_SYST 120; BP_DIAS 74; BP_DIAS 76
--- NOTE | 2020-11-09 20:58 | NUR ---
PT RESTING ON RA + DENIES SOB. NO DISTRESS NOTED WILL CONTINUE TO MONITOR
--- NOTE | 2020-11-09 21:10 | NUR ---
RN REVIEWED PATIENT PLAN OF CARE WITH FAYE BELLO. DISCUSSED MEDICATION REGIMEN, FALL AND SAFETY PRECAUTIONS AND MEDICAL PATIENT PLAN OF CARE.
--- NOTE | 2020-11-09 23:48 | NUR ---
PATIENT SLEEPING DURING ROUNDING, EASILY AROUSED. NO ADVERSE EFFECTS NOTED R/T MEDICATIONS. FALL AND SAFETY PRECAUTION MAINTAINED. RESPIRATIONS EVEN AND NONLABORED. NO ACUTE DISTRESS NOTED.
[2020-11-10] VITALS: BP 120/74
--- NOTE | 2020-11-10 | NUR ---
SLEEPING COMFORTABLY IN BED, NO SOB NOTED.
--- NOTE | 2020-11-10 00:30 | NUR ---
O2 SATURATION ON ROOM AIR, 93%.
--- NOTE | 2020-11-10 02:00 | NUR ---
LAYING IN BED ON HER RIGHT SIDE, WHEN ASKED IF SHE NEEDS ANYTHING, STATED SHE IS OK.
[2020-11-10 04:00] VITALS: BP 106/63
--- NOTE | 2020-11-10 04:00 | NUR ---
ON ROOM AIR DURING SHIFT, 02 SAT - 91 - 93%.
--- NOTE | 2020-11-10 07:05 | NUR ---
CONDITION REMAIN STABLE. ENDORSED TO HAI NIELSEN FOR CONTINUITY OF CARE.
--- NOTE | 2020-11-10 07:06 | NUR ---
RECEIVED REPORT FROM BURRER HAND RN FOR CONTINUITY OF CARE. PATIENT RESTING IN BED WITH LEFT LATERAL POSITION IN RA. O2 SAT 91%. PER BURRER HAND RN. PATIENT HAS BEEN OFF OXYGEN FOR 2 DAYS, PATIENT TOLERATED WELL. SAFETY MEASURES IN PLACE, WILL CONTINUE TO MONITOR.
[2020-11-10 07:34] LABS: BASOPHILS # (AUTO) 0.1 K/uL (0.00-0.22); BASOPHILS % (AUTO) 0.5 % (0.0-2.0); EOSINOPHILS # (AUTO) 0.5 K/uL (0-0.4); EOSINOPHILS % (AUTO) 4.6 % (0.0-4.0); HEMATOCRIT 35.9 % (36-48); HEMOGLOBIN 12.2 g/dL (12.0-16.0); LYMPHOCYTES % (AUTO) 28.4 % (20.5-51.1); MEAN CORPUSCULAR HEMOGLOBIN 31 pg (27-31); MEAN CORPUSCULAR HGB CONC 34 g/dL (33-37); MEAN CORPUSCULAR VOLUME 92.3 fL (80-94); MONOCYTES # (AUTO) 0.7 K/uL (0.8-1.0); MONOCYTES % (AUTO) 6.4 % (1.7-9.3); NEUTROPHILS # (AUTO) 6.3 K/uL (1.8-7.7); NEUTROPHILS % (AUTO) 60.1 % (42.2-75.2); PLATELET COUNT (AUTO) 212 K/uL (140-450); RED BLOOD CELL COUNT(AUTO) 3.89 MIL/uL (4.20-5.40); RED CELL DISTRIBUTION WIDTH 15.3 % (11.6-13.7); WHITE BLOOD COUNT (AUTO) 10.5 K/uL (4.8-10.8)
[2020-11-10 07:37] LABS: ANION GAP 10.4 (8-16); CARBON DIOXIDE 28.9 mmol/L (21-32); CREATININE 0.6 mg/dL (0.6-1.3); POTASSIUM 4.3 mmol/L (3.5-5.1)
[2020-11-10 08:00] VITALS: BP 100/68
[2020-11-10] MEDS: ENOXAPARIN 40 MG/0.4 ML SYR SUBQ SCH (09:22)
--- NOTE | 2020-11-10 09:22 | NUR ---
SCHEDULED MEDICATION GIVEN, EDUCATION PROVIDED. VERBALIZED UNDERSTANDING AND RESTING WELL IN BED. NO SOB WHEN RESTING.
--- NOTE | 2020-11-10 11:15 | NUR ---
PATIENT RESTING IN BED. WITH NO SOB WHEN RESTING. TOLERATED WELL IN RA WHEN RESTING.
--- NOTE | 2020-11-10 14:24 | NUR ---
CHECKED PATIENT'S O2 SAT, 93% IN RA. PATIENT STATED THAT HER HR INCREASED AND SOB ON EXERTION. BUT PATIENT HAD BEEN OFF OXYGEN FOR THE PAST [address] DONOHUE. PER DR. DONOHUE. WANTED TO CHECK PATIENT'S O2 SAT WHEN AMBULATING. WILL FOLLOW UP.
[2020-11-10 16:00] VITALS: BP 96/66
--- NOTE | 2020-11-10 16:46 | NUR ---
PATIENT'S O2 SAT DESAT TO 82% WHEN WALKING IN THE ROOM FOR ABOUT 3 MINS, HR INCREASE TO 110. BUT AFTER RESTING. DEEP BREATH. O2 SAT INCREASED BACK TO 93%. INFORMED PATIENT THAT SHE NEEDS TO WALK SLOWLY, TAKE DEEP BREATH AND RELAX.
--- NOTE | 2020-11-10 19:25 | NUR ---
ENDORSED PATIENT TO MIDDLE SCHOOL TUTOR RN FOR CONTINUITY OF CARE. PATIENT IN STABLE CONDITION IN RA.
--- NOTE | 2020-11-10 19:26 | NUR ---
RECD. SITTING ON BED, AWAKE, A/OX3. RESPIRATION EVEN AND UNLABORED, ON ROOM AIR. IV SALINE LOCK AT THELELFTHAND G22, PATENT AND INTACT. USES THE BEDSIDE COMMODE. VERBALIZED FEELING BETTER. INSTRUCTED TO CONTINUE USING THE INCENTIVE SPIROMETER. VERBALIZED UNDERSTANDING. DENIES PAIN 0/10.
[2020-11-10 20:00] VITALS: BP 121/68
--- NOTE | 2020-11-10 21:00 | NUR ---
ON HER CELLPHONE IN A CONVERSATION. NO SOB NOTED.
--- NOTE | 2020-11-11 01:00 | NUR ---
ON HER LEFT SIDE, COMFORTABLY ASLEEP.
--- NOTE | 2020-11-11 03:00 | NUR ---
RESPIRATORY STATUS REMAIN STABLE STILL ASLEEP IN BED.
[2020-11-11 04:00] VITALS: BP 112/65
--- NOTE | 2020-11-11 06:34 | NUR ---
O2 SAT MAINTAINED AT 92% DURING SHIFT WHEN RESTING IN BED.
--- NOTE | 2020-11-11 07:15 | NUR ---
ENDORSED TO AM SHIFT NURSE FOR CONTINUITY OF CARE.
--- NOTE | 2020-11-11 07:16 | NUR ---
RECEIVED PATIENT FROM NIGHT NURSE. PATIENT IN BED AWAKE AND ALERT. RESP EVEN AND UNLABORED ON ROOM AIR. DENIED OF PAIN AT THIS TIME. LW 22G SL. PATIENT ENCOURAGED TO AMBULATE AND MONITOR FOR O2SAT >90%. PATIENT VERBALIZED UNDERSTANDING. NO ACUTE S/S DISTRESS AT THIS TIME. HOB ELEVATED. CALL LIGHT WITHIN REACH. WILL CONTINUE TO MONITOR.
[2020-11-11 07:33] LABS: BASOPHILS # (AUTO) 0.1 K/uL (0.00-0.22); BASOPHILS % (AUTO) 0.6 % (0.0-2.0); EOSINOPHILS # (AUTO) 0.5 K/uL (0-0.4); EOSINOPHILS % (AUTO) 4.6 % (0.0-4.0); HEMATOCRIT 35.3 % (36-48); LYMPHOCYTES # (AUTO) 3.2 K/uL (2.5-16.5); LYMPHOCYTES % (AUTO) 31.4 % (20.5-51.1); MEAN CORPUSCULAR HEMOGLOBIN 32 pg (27-31); MEAN CORPUSCULAR HGB CONC 34 g/dL (33-37); MEAN CORPUSCULAR VOLUME 92.9 fL (80-94); MONOCYTES # (AUTO) 0.7 K/uL (0.8-1.0); MONOCYTES % (AUTO) 6.8 % (1.7-9.3); NEUTROPHILS # (AUTO) 5.8 K/uL (1.8-7.7); NEUTROPHILS % (AUTO) 56.6 % (42.2-75.2); PLATELET COUNT (AUTO) 215 K/uL (140-450); RED CELL DISTRIBUTION WIDTH 15.1 % (11.6-13.7); WHITE BLOOD COUNT (AUTO) 10.3 K/uL (4.8-10.8)
[2020-11-11 07:40] LABS: ANION GAP 9.7 (8-16); CARBON DIOXIDE 28.9 mmol/L (21-32); CREATININE 0.6 mg/dL (0.6-1.3); POTASSIUM 4.6 mmol/L (3.5-5.1)
[2020-11-11 08:00] VITALS: BP 92/66
[2020-11-11] MEDS: ENOXAPARIN 40 MG/0.4 ML SYR SUBQ SCH (09:07)
--- NOTE | 2020-11-11 09:10 | NUR ---
PATIENT IN BED AWAKE AND ALERT. MORNING ROUTINE MEDICATION GIVEN. PATIENT TOLERATED WELL. LW 22G INTACT AND PATENT, SL. DENIED OF PAIN AT THIS TIME. RESP EVEN AND UNLABORED ON ROOM AIR AT REST, O2SAT 95%. PLAN OF CARE DISCUSSED, PATIENT VERBALIZED UNDERSTANDING. CALL LIGHT WITHIN REACH. WILL CONTINUE TO MONITOR.
[2020-11-11] MEDS ORDERED: ALBU0.0912 INH (10:59)
[2020-11-11] MEDS ORDERED: ASPI-1205 PO (10:59)
--- NOTE | 2020-11-11 11:15 | NUR ---
PATIENT AMBULATED TO THE BATHROOM AND BACK TO BED WITH STEADY GAIT. PATIENT DESAT TO 85% WITH C/O SOB. PATIENT RESTING IN BED AND O2SAT RECOVERED QUICKLY TO 92%. PATIENT AWAKE AND ALERT. DR LACY IN HOUSE MADE AWARE. DR AVITIA MADE AWARE OF STATUS. WILL CONTINUE TO MONITOR.
--- NOTE | 2020-11-11 13:09 | NUR ---
PATIENT SITTING IN CHAIR BY BEDSIDE. RESP EVEN WITH MILD EXERTION. PATIENT AWAKE AND ALERT AND ABLE TO MAKE NEEDS KNOWN. CALL LIGHT WITHIN REACH. WILL CONTINUE TO MONITOR.
--- NOTE | 2020-11-11 15:25 | NUR ---
PATIENT IN BED SLEEPING, CHEST NOTED RISING. NO ACUTE S/S DISTRESS. CALL LIGHT WITHIN REACH. WILL CONTINUE TO MONITOR.
[2020-11-11 16:00] VITALS: BP 99/64
[2020-11-11 18:42] VITALS: BP 99/64
--- NOTE | 2020-11-11 19:26 | NUR ---
PATIENT DISCHARGED HOME WITH DAUGHTER. PATIENT LEFT WITH ALL PERSONAL BELONGINGS. FLU VACC REFUSED. DISCHARGE INSTRUCTIONS PROVIDED TO PATIENT AND DAUGHTER. PATIENT VERBALIZED UNDERSTANDING.
== END 2020-11-11 19:20 | disposition home or self-care (01) | DRG 720 ==
LOC: MED 22:06 → MTU 10-20 00:16
PROVIDERS: ADMIT Family Medicine; ATTEND Family Medicine
PROC: XW13325 Transfusion of Convalescent Plasma (Nonautologous) into Peripheral Vein, Percutaneous Approach, New Technology Group 5 (ICD-10-PCS; principal; 2020-10-22)
PROC: XW033E5 Introduction of Remdesivir Anti-infective into Peripheral Vein, Percutaneous Approach, New Technology Group 5 (ICD-10-PCS; 2020-10-26)
DX: A41.89 Other specified sepsis (principal); U07.1 COVID-19; J12.82 Pneumonia due to coronavirus disease 2019; J96.01 Acute respiratory failure with hypoxia; E43 Unspecified severe protein-calorie malnutrition; E87.1 Hypo-osmolality and hyponatremia; E86.0 Dehydration; D68.59 Other primary thrombophilia; E87.5 Hyperkalemia; R74.01 Elevation of levels of liver transaminase levels; E87.6 Hypokalemia; Z90.49 Acquired absence of other specified parts of digestive tract; Z68.25 Body mass index [BMI] 25.0-25.9, adult
CPT/HCPCS: 36415; 36600; 71045; 71275; 76700; 80048; 80053; 80076; 81003; 82150; 82550; 82553; 82728; 82803; 83036; 83605; 83615; 83690; 83735; 83880; 84100; 84439; 84443; 84484; 85025; 85379; 85384; 85610; 85651; 85730; 86140; 86886; 86900; 86901; 87040; 87081; 93005; 96365; 96367; 96375; 97110; 97112; 97116; 97161-GP; 97530; 99285; J0456; J0696; J1100; J1650; J1956; J7030; J7060; P9017; Q9967; U0003